=== PATIENT | female | born 1950 | race Caucasian/White ===

== ENCOUNTER 2016-11-20 19:05 | Emergency (ER) | payer OTHER ==
[~2016-11-20] VITALS: Ht 160 cm; Wt 51.4 kg
[~2016-11-20 19:05] MED LIST: ASPI-113 PO; CALCTAB7 PO; FISHOIL PO; PRED-301 PO
[2016-11-20 19:16] VITALS: TEMP 36.6; Ht 160 cm; Wt 51.4 kg
[2016-11-20] MEDS ORDERED: OXYCODONE HCL IR 5 MG TAB (IMMEDIATE RELEASE) PO STA (19:53)
[2016-11-20] MEDS ORDERED: OXYCODONE IR HOME PACK PO ONE (20:00)
[2016-11-20] MEDS ORDERED: DIPHTHERIA/TETANUS/PERTUSSIS 0.5 ML SYR/VIAL IM. ONE (20:00)
[2016-11-20] MEDS ORDERED: OXYC1TAB3 PO (20:07)
[2016-11-20] MEDS ORDERED: PRED10TA PO (20:25)
[2016-11-20] MEDS ORDERED: CHOL1000 PO (20:25)
[2016-11-20] MEDS ORDERED: OMEG10007 PO (20:25)
[2016-11-20] MEDS ORDERED: CALCTAB5 PO (20:25)
[2016-11-20 20:38] VITALS: BP 156/95; PULSE 77; O2SAT 96
--- NOTE | 2016-11-20 23:38 | EMERGENCY ROOM VISIT NOTE ---
ED Visit Note First contact with patient: 19:43 I have personally seen and evaluated the patient with the PA. I agree with the diagnosis and management decisions and have been personally involved in the case. Please see Douglas Salvador PA-C's notes for further details of the history, physical and visit.
--- NOTE | 2016-11-21 01:01 | EMERGENCY ROOM VISIT NOTE ---
History First contact with patient: 19:43 Chief Complaint: BURN (MINOR) Stated Complaint: BURN ON LEFT PALM History of Present Illness The patient is a 66 year old female who presents to the Emergency Room with complaints of a burn to her left palm while reaching into her oven and grabbing a hot dunn. The patient reports that the oven was set at 450F, and she did not think when she grabbed for the handle and burned her hand. The patient rates her discomfort a 10 out of 10. She reports that the only thing that helps with her pain is an ice pack. Tetanus immunization is unknown. The patient is right -hand-dominant. Review of Systems 10 system review was performed and was negative except for pertinent positives and negatives as indicated in history of present illness Past Medical/Surgical History Medical Problems: (1) Carpal Tunnel Syndrome (2) Rheumatoid Arthritis (3) Senile Nuclear Cataract (4) Tobacco Use Disorder Family History Unremarkable Social History Smoking Status: Current Every Day Smoker Alcohol Use: none Marital Status: Occupation Status: unemployed Current/Historical Medications Scheduled Calcium Carbonate (Caltrate 600), 1 TAB PO DAILY Cholecalciferol (Vitamin D3), 1 TAB PO DAILY Fish Oil (Potrero-3), 2 CAP PO DAILY Prednisone (Prednisone), 10 MG PO DAILY Scheduled PRN Oxycodone Ir (Roxicodone Ir), 1-2 TAB PO Q4H PRN for Pain Allergies Coded Allergies: No Known Allergies (Unverified , 09/02/12) Physical Exam Vital Signs Date Time Temp Pulse Resp B/P (MAP) Pulse Ox O2 Delivery O2 Flow Rate FiO2 11/20/16 20:38 77 22 156/95 96 11/20/16 19:16 96 Room Air 11/20/16 19:16 36.6 87 18 211/120 96 Room Air Pain Rating (0-10): 9.0 Physical Exam CONSTITUTIONAL: Healthy and well nourished. Alert and oriented X 3 with positive affect. Patient appears in moderate discomfort from pain. HEENT: Normocephalic, atraumatic. Pupils equal, round and reactive. NECK: Full active range of motion without discomfort. MUSCULOSKELETAL: Examination of the left hand hypothenar eminence shows a second -degree burn with tense but intact blister, measuring approximately 8 cm in diameter. There is no other anguiano to the fingers or wrist region. Body surface area is less than 1%. INTEGUMENTARY: No rash or other significant dermatologic conditions noted. NEUROLOGIC: No focal neurologic deficits noted. Medical Decision & Procedures Medications Administered Medications (Trade) Dose Ordered Sig/Don Route Start Time Stop Time Status Last Admin Dose Admin Oxycodone HCl (Roxicodone Immediate Rel Tab) 5 mg NOW STAT PO 11/20/16 19:53 11/20/16 19:55 DC 11/20/16 20:13 5 MG Oxycodone HCl (Roxicodone Immediate Rel 5MG Home Pack) 1 homepack UD ONCE PO 11/20/16 20:00 11/20/16 20:01 DC 11/20/16 20:14 1 HOMEPACK Diphtheria/ Pertussis/Tetanus Vacc (Adacel Inj) 0.5 ml ONCE ONCE IM. 11/20/16 20:00 11/20/16 20:01 DC 11/20/16 20:14 0.5 ML ED Course Patient history and physical exam were performed. Nurse's notes were reviewed. Vital signs were reviewed, showing a blood pressure of 211/120. The patient was administered Adacel IM, and OxyIR 5 mg for pain. A bacitracin dressing was applied to the hand. The patient was instructed to follow-up with her PCP or Dr. Snow for further burn follow-up. She is welcome to return here in 48 hours if she is unable to secure an appointment. She was provided a home pack and prescription for OxyIR 5 mg as needed for pain. The patient was also seen and examined by Dr. Cotto, ED attending physician, who agrees with workup and plan of care. The patient had already departed the emergency department before I could ask the nurse to repeat her blood pressure, which was likely secondary to pain. Medical Decision [place] Drug Monitoring Program Search Results: patient reviewed within database, no issues identified Impression Primary Impression: Burn of hand, right, second degree Departure Information Dispostion Home / Self-Care Condition GOOD Prescriptions Oxycodone Ir (Roxicodone Ir) 5 Mg Tab 1-2 TAB PO Q4H Y for Pain, #36 TAB For Initial Treatment Prov: Douglas Salvador PA 11/20/16 Referrals Sruthi Snow MD Forms HOME CARE DOCUMENTATION FORM, IMPORTANT VISIT INFORMATION Patient Instructions My [facility] Additional Instructions Intermittently apply an ice pack over gauze - do not apply ice pack directly to the skin. Keep burn clean and covered with an antibiotic ointment and dressing. Do not pop blister. Ibuprofen 800 mg and/or Tylenol 1000 mg every 8 hours. You may also alternate these medications for more effective pain relief: Ibuprofen --4 HRS--> Tylenol --4 HRS--> ibuprofen --4 HRS--> Tylenol .... OxyIR if needed for worse pain. Do not drink alcohol or drive while taking OxyIR. Problem Qualifiers Primary Impression: Burn of hand, right, second degree Encounter type: initial encounter Burn of hand location: palm Qualified Codes: T23.251A - Burn of second degree of right palm, initial encounter
--- NOTE | 2016-11-25 13:39 | EDITING REQUIRED CODING QUERY ---
CODING QUERY To promote full compliance with coding requirements relating to patient care, provider participation is requested in all cases of surgical coder uncertainty. Please assist us with the question(s) below: Coding Question(s): HPI and Physical Exam both list location of burn as the LEFT palm. Final Impression lists the location of the burn as the RIGHT hand. Please verify if this is the LEFT or RIGHT palm. Physician's Response(s): Diagnosis should be Burn of hand, LEFT, Second Degree Addendum was made to H&P on 11/27/16 Thank you Lashay Wallis Principal Diagnosis: "_that condition established after study, to be chiefly responsible for occasioning the admission of the patient to the hospital for care." Co-Existing Principal Diagnosis: "_when two or more diagnoses equally meet the criteria for principal diagnosis as determined by the circumstances of admission, diagnostic work up, and/or therapy provided, and the Alphabetic Index, Tabular List, or another coding guideline does not provide sequencing direction, any one of the diagnoses may be sequenced first." "When the physician has documented what appears to be a current diagnosis in the body of the record, but has not included the diagnosis in the final diagnostic statement, the physician should be asked whether the diagnosis should be added." (Source Coding Clinic 2 QTR90. p3-4)
== END 2016-11-20 20:39 | disposition home or self-care (01) ==
LOC: C.EDB 19:06 → C.EDD 20:39
DX: T23.252A Burn of second degree of left palm, initial encounter (principal); X15.3XXA Contact with hot saucepan or skillet, initial encounter; G56.00 Carpal tunnel syndrome, unspecified upper limb; M06.9 Rheumatoid arthritis, unspecified; H25.10 Age-related nuclear cataract, unspecified eye; F17.200 Nicotine dependence, unspecified, uncomplicated; Z23 Encounter for immunization

== ENCOUNTER → 2017-02-17 | Day surgery (SDC) | payer OTHER ==
[2017-02-07 10:02] VITALS: Ht 162.6 cm; Wt 50.0 kg
[~2017-02-17] VITALS: Ht 162.6 cm; Wt 50.0 kg
[~2017-02-17] MED LIST changes: +500ML BSS 0.3ML EPI 1:1000PF IRRIG ONE; +ACETAMINOPHEN 325 MG TAB PO PRN; +AMVISC PLUS 0.8ML SYRINGE INT OCU ONE; -ASPI-113 PO; +B-CO-25 PO; +BSS FLUSH ONE; +CALCTAB30 PO; -CALCTAB7 PO; +CHOL1000 PO; +ENDOCOAT 0.85ML SYRINGE INT OCU ONE; +ETAN50IN2 INJ; +EpINEphrine INJ 1MG/ML AMP 1 MG/ML AMP ONE; +FENTANYL CITRATE INJ 50 MCG/1 ML 2 ML VIAL ONE; -FISHOIL PO; +LABETALOL HCL IV 5 MG/ML 20ML IV ONE; +LACTATED RINGER'S 1000ML 500 ML IV SCH; +LIDOCAINE 4% OP SOLN DROP CHARGE ONE; +LIDOCAINE 4% OP SOLN DROP CHARGE OPL SCH; +LIDOCAINE HCL 1% MPF 2 ML VIAL ONE; +MIDAZOLAM HCL 1 MG/ML 2ML VIAL ONE; +MOXIFLOXACIN OPH SOLN PER DROP CHARGE ONE; +OMEG10007 PO; +POTA99TA PO; +POVIDONE-IODINE OP SOLN 30 ML BTL ONE; +PROPARACAINE 0.5% OP SOLN PER DROP CHARGE OPL SCH; +TOBRAMYCIN/DEXAMETHASONE OPH OINT PER APPLN CHARGE ONE
[2017-02-17] MEDS: PHENYLEPHRINE HCL 2.5% OP SOLN PER DROP CHARGE OPL SCH ×2 (09:52→09:58)
[2017-02-17] MEDS: TROPICAMIDE 1% OP SOLN PER DROP CHARGE OPL SCH ×2 (09:53→09:59)
[2017-02-17] MEDS: CYCLOPENTOLATE HCL 1% OP SOLN PER DROP CHARGE OPL SCH ×2 (09:54→10:00)
[2017-02-17] MEDS: KETOROLAC 0.5% OP SOLN PER DROP CHARGE OPL SCH ×2 (09:55→10:01)
[2017-02-17] MEDS: MOXIFLOXACIN OPH SOLN PER DROP CHARGE OPL SCH ×2 (09:56→10:06)
--- NOTE | 2017-02-17 10:24 | History & Physical Bridge - SC ---
H&P Re-Evaluation Bridge Note: I have examined the patient, reviewed the History & Physical and in the interval since the performance of the History & Physical I have noted the following changes of clinical significance: No changes noted
[2017-02-17] MEDS: BRIMONIDINE TART 0.2% OP SOLN PER DROP CHARGE ONE ×2 (10:38→11:01)
--- NOTE | 2017-02-17 11:04 | Discharge Instructions-SurgCtr ---
Discharge Instructions Date of Service Feb 17, 2017. Visit Reason for Visit: Left Eye Cataract, Glaucoma Discharge Discharge Diagnosis / Problem: cataract and glaucoma left eye Discharge Goals Goal(s): Improve function Activity Recommendations Activity Limitations: per Instructions/Follow-up section Lifting Limitations: no more than 5 pounds Anesthesia . Post Anesthesia Instructions: If you have had General Anesthesia or IV Sedation: * Do not drive today. * Resume driving when surgeon permits. * Do not make important decisions or sign legal documents today. * Call surgeon for: 1. Temperature elevations greater than 101 degrees F. 2. Uncontrollable pain. 3. Excessive bleeding. 4. Persistent nausea and vomiting. 5. Medication intolerance (nausea, vomiting or rash). * For nausea and vomiting use only clear liquids such as: tea, soda, bouillon until nausea subsides, then gradually increase diet as tolerated. * If you have any concerns or questions, call your surgeon's office. If physician is unavailable and it is an emergency, call 911 or go to the nearest emergency room. . Instructions / Follow-Up Instructions / Follow-Up ACTIVITY RECOMMENDATIONS: * Light activities * You may walk outside, read, watch television. * Mild irritation and blurred vision are common for the first few days, redness around the white part of the eye is common. MEDICATIONS: Resume previous medications unless instructed otherwise by your surgeon. Eye drops (today and tomorrow): Cipro - one drop in operative eye every 2 hours while awake Prednisolone 1% - one drop in operative eye every 2 hours while awake Ilevro - one drop in operative eye 1 x a day Timolol - one drop in both eyes once daily latanoprost - one drop both eyes at night SPECIAL CARE INSTRUCTIONS: * If any problems or concerns, please call Dr. Felming's office at . * Keep plastic shield taped over eye to sleep at night. * Keep plastic shield taped over eye except to administer eye drops. * Keep plastic shield on until office visit the following day. FOLLOW UP VISIT: Follow-up with Dr. Fleming in the [place] office as scheduled. If not already scheduled, please call the office at . Diet Recommendations Home Diet: resume previous diet Procedures Procedures Performed: Left Cataract Phacoemulsification With Intraocular Lens Implant Pending Studies Studies pending at discharge: no Medical Emergencies . Who to Call and When: Medical Emergencies: If at any time you feel your situation is an emergency, please call 911 immediately. . Non-Emergent Contact Non-Emergency issues call your: Boatbuilder Supervisor . . "Provider Documentation" section prepared by Timi Fleming. .
--- NOTE | 2017-02-17 11:08 | [facility] Operative Report ---
Operative Report Operative Date Feb 17, 2017. Pre-Operative Diagnosis Cataract left eye Post-Operative Diagnosis Same Procedure(s) Performed Left Cataract Phacoemulsification With Intraocular Lens Implant and attempted Cypass placement left eye Surgeon Resource Development Manager Surgeon(s) None Estimated Blood Loss Zero Findings cataract left eye Fluids (cc crystalloids) see anesthesia record Specimens None Drains none Anesthesia local with sedation Complication(s) None Disposition Recovery Room / PACU Implants [id number] 21.0 Indications decreased vision left eye and glaucoma left eye Description of Procedure After informed consent was obtained in the holding area the patient was wheeled back to the operating room where cardiac monitoring leads and oxygen by nasal cannula was administered by Anesthesia. Gentle IV sedation was given, and the patient's left eye was prepped and draped in usual sterile fashion. A wire lid speculum was placed into the left eye and the operating microscope was swung into position. Using 0.12 forceps and a Supersharp blade a paracentesis port was made 2 o'clock hours away from the 3 o'clock position of the patient's left eye. 1% non-preserved Lidocaine was then injected into the anterior chamber for anesthesia. A 2.0 mm keratotome blade was then used to make a shelved clear corneal incision at the 3 o'clock position of the left eye. Amvisc was injected into the anterior chamber and a cystotome and Utrata forceps were used to perform a curvilinear capsulorrhexis. BSS on a hydrodissection cannula was used to hydrodissect the lens nucleus away from the capsular bag. The phacoemulsification handpiece was then used in a stop and chop fashion to remove the lens nucleus. The irrigation and aspiration handpiece was then used to remove the residual cortical material. Amvisc was injected into the capsular bag and anterior chamber and a [employer]ch [employer] Lomb MX60 21.0 Diopter intraocular lens was injected into the capsular bag. The head was then rotated away from mn and the scope was rotated towards mn. Viscoelastic and gonioprism were placed on the cornea and a Cypass shunt was attempted to be placed at the 8 o'clock position of the left eye x 2. The cypass device did not pass with the patients angle anatomy. Irrigation and aspiration handpiece was used to remove the residual viscoelastic material. The wounds were hydrated and noted to be watertight. The wire lid speculum was removed from the eye. Vigamox, Brimonidine, and TobraDex ointment were placed on the eye and it was shielded. It should be noted that EndoCoat was used extensively during the case to protect the cornea endothelium. DISPOSITION: The patient tolerated the procedure well and was wheeled to the post anesthesia care unit in stable condition. I attest to the content of the Intraoperative Record and any orders documented therein. Any exceptions are noted below. I attest to the content of the Intraoperative Record and any orders documented therein. Any exceptions are noted below.
[2017-02-17 11:35] VITALS: BP 162/78; PULSE 67; TEMP 36.4; O2SAT 94
--- NOTE | 2017-02-17 11:37 | Anesthesia Progress Nt - [facility] ---
Anesthesia Post Op Note Date & Time Feb 17, 2017 at 11:37 Vital Signs Pain Intensity: 0 Vital Signs Past 12 Hours Date Time Temp Pulse Resp B/P (MAP) Pulse Ox O2 Delivery O2 Flow Rate FiO2 02/17/17 11:06 36.2 68 16 172/90 (117) 98 Room Air 02/17/17 09:30 36.8 66 22 205/115 (145) 96 Room Air 209/126 (153) Notes Mental Status: alert / awake / arousable, participated in evaluation Pt Amnestic to Procedure: Yes Nausea / Vomiting: adequately controlled Pain: adequately controlled Airway Patency, RR, SpO2: stable & adequate BP & HR: stable & adequate Hydration State: stable & adequate Anesthetic Complications: no major complications apparent
== END | disposition home or self-care (01) ==
LOC: X.SURG 09:22
PROVIDERS: ATTEND Ophthalmology
DX: H25.12 Age-related nuclear cataract, left eye (principal); H40.1190 Primary open-angle glaucoma, unspecified eye, stage unspecified; F17.210 Nicotine dependence, cigarettes, uncomplicated; Z79.899 Other long term (current) drug therapy

== ENCOUNTER 2017-05-03 10:59 | Emergency (ER) | payer OTHER ==
[~2017-05-03] VITALS: Ht 160 cm; Wt 51.4 kg
[~2017-05-03 10:59] MED LIST changes: -500ML BSS 0.3ML EPI 1:1000PF IRRIG ONE; -ACETAMINOPHEN 325 MG TAB PO PRN; -AMVISC PLUS 0.8ML SYRINGE INT OCU ONE; -BSS FLUSH ONE; -ENDOCOAT 0.85ML SYRINGE INT OCU ONE; -EpINEphrine INJ 1MG/ML AMP 1 MG/ML AMP ONE; -FENTANYL CITRATE INJ 50 MCG/1 ML 2 ML VIAL ONE; -LABETALOL HCL IV 5 MG/ML 20ML IV ONE; -LACTATED RINGER'S 1000ML 500 ML IV SCH; -LIDOCAINE 4% OP SOLN DROP CHARGE ONE; -LIDOCAINE 4% OP SOLN DROP CHARGE OPL SCH; -LIDOCAINE HCL 1% MPF 2 ML VIAL ONE; -MIDAZOLAM HCL 1 MG/ML 2ML VIAL ONE; -MOXIFLOXACIN OPH SOLN PER DROP CHARGE ONE; -POVIDONE-IODINE OP SOLN 30 ML BTL ONE; -PROPARACAINE 0.5% OP SOLN PER DROP CHARGE OPL SCH; -TOBRAMYCIN/DEXAMETHASONE OPH OINT PER APPLN CHARGE ONE
[2017-05-03 11:11] VITALS: Ht 160 cm; Wt 51.4 kg
[2017-05-03] MEDS ORDERED: HYDROCODONE/ACETAMIN 5/325MG TAB PO STA (11:32)
[2017-05-03] MEDS ORDERED: DIAZEPAM 5MG TAB PO STA (11:32)
--- NOTE | 2017-05-03 11:34 | EMERGENCY ROOM VISIT NOTE ---
History Report prepared by Patria: Grisel Manzanares Under the Supervision of: Dr. Christie Cotto M.D. First contact with patient: 11:14 Chief Complaint: BACK PAIN Stated Complaint: LOW BACK PAIN/SPASMS History of Present Illness The patient is a 66 year old female who presents to the Emergency Room with complaints of worsening back pain for the past several weeks. She rates her pain as a 7/10 in severity. Aleve has provided minimal pain relief. She states the pain radiates down into her right leg. Moving her legs worsens her pain. She has not lost control of her bowels or bladder. She has never had spinal injections or surgery before. She reports she does play with her grandson's, so she may have exacerbated something playing with them, but denies any known injury. She denies any recent chest pain or shortness of breath. The patient denies having a PCP currently but states she follows with her International Specialist, Dr. Lorenzo with [facility], regularly. Source of History: patient Onset: past several weeks Position: back Symptom Intensity: 7/10 Timing: worsening Modifying Factors (Worsening): movement (moving her legs) Modifying Factors (Relieving): other (Aleve) Associated Symptoms: No chest pain, No SOB Review of Systems See HPI for pertinent positives & negatives. A total of 10 systems reviewed and were otherwise negative. Past Medical & Surgical Medical Problems: (1) Carpal Tunnel Syndrome (2) Rheumatoid Arthritis (3) Senile Nuclear Cataract (4) Tobacco Use Disorder Social History Smoking Status: Current Every Day Smoker Alcohol Use: none Drug Use: none Marital Status: Housing Status: lives with family Occupation Status: unemployed Current/Historical Medications Scheduled B-Complex W/ Folic Acid (Super B Complex Maxi), 1 TAB PO QAM Rvbtadh-Hspflonib-Udiw (Calcium/Magnesium/Zinc), 1 TAB PO QAM Cholecalciferol (Vitamin D3), 1 TAB PO QAM Etanercept (Enbrel), 1 DOSE INJ WK Fish Oil (Leipsic-3), 1 CAP PO QAM Potassium (Potassium), 1 TAB PO QAM Prednisone (Prednisone), 40 MG PO DAILY Scheduled PRN Cyclobenzaprine Hcl (Flexeril), 5 MG PO TID PRN for Muscle Spasms Hydrocodone/Acetaminophen 5MG/325MG ([place] 5MG/325MG), 0.5-1 TABLET PO Q6 PRN for Pain Prednisone (Prednisone), 5 MG PO DIRECTED PRN for ARTHRITIC FLARE-UP Allergies Coded Allergies: No Known Allergies (Unverified , 05/03/17) Physical Exam Vital Signs Date Time Temp Pulse Resp B/P (MAP) Pulse Ox O2 Delivery O2 Flow Rate FiO2 05/03/17 13:14 36.8 77 18 161/99 98 05/03/17 13:12 77 18 161/99 98 Room Air 05/03/17 11:56 187/100 05/03/17 11:32 78 18 206/105 98 Room Air 05/03/17 11:11 36.8 75 16 223/113 98 Room Air 212/102 Physical Exam Vital signs reviewed. General: Well-appearing 66 year old female, sitting up in bed, holding right lower back, in no significant distress. HEENT: No scleral icterus, PERRLA, neck supple. Atraumatic. Cardiovascular: Regular rate and rhythm, no extra sounds. Pulmonary: Clear to auscultation bilaterally, normal work of breathing. Abdomen: Soft, nontender, nondistended, positive bowel sounds. Musculoskeletal: Mildly tender to palpation over right paraspinous muscle. Lumbar spine is nontender, no step off, no deformity. Full strength of lower extremities. Negative straight leg raise. Atraumatic, no peripheral edema. Neurologic: Patient awake alert and oriented x 3, full strength in all 4 extremities. Cranial nerves 2 through 12 grossly intact. Skin: Warm, dry, no rash Medical Decision & Procedures ER Provider Diagnostic Interpretation: Radiology results as stated below per my review and radiologist interpretation: L-SPINE MIN 4 VIEWS ROUTINE CLINICAL HISTORY: 66 years-old Female presenting with Lumbar radiculopathy, Right. TECHNIQUE: Frontal, bilateral oblique, lateral, and coned in lateral views of the lumbar spine were obtained. COMPARISON: None. FINDINGS: Levocurvature of the lumbar spine centered at L3. 12 mm of grade 2 anterolisthesis of L4 on L5 without radiographic evidence of a pars defect though this may be present at L4. Vertebral bodies maintain normal height. Intervertebral disc height loss at L4-5. Osseous neural foraminal narrowing results at L4-5. Lung bases clear. No bowel obstruction. IMPRESSION: Significant anterolisthesis of L4 on L5 with osseous neural foraminal narrowing. Electronically signed by: Dinesh Ivy M.D. 05/03/2017 12:32 PM Medications Administered Medications (Trade) Dose Ordered Sig/Don Route Start Time Stop Time Status Last Admin Dose Admin Diazepam (Valium Tab) 5 mg NOW STAT PO 05/03/17 11:32 05/03/17 11:35 DC 05/03/17 11:42 5 MG Prednisone (PredniSONE TAB) 40 mg NOW STAT PO 05/03/17 11:32 05/03/17 11:35 DC 05/03/17 11:43 40 MG Acetaminophen/ Hydrocodone Bitart ([place] 5/325 Tab) 1 tab NOW STAT PO 05/03/17 11:32 05/03/17 11:35 DC 05/03/17 11:42 1 TAB ED Course 1128: Past medical records reviewed. The patient was evaluated in room A11. A complete history and physical examination was performed. 1132: [place] 5/325 mg 1 tab PO, Prednisone 40 mg PO, Valium 5 mg PO. 1250: I reevaluated the patient. She is feeling much better. I discussed her results and discharge instructions and she verbalized complete understanding and agreement. Medical Decision DDx: Etiologies such as musculoskeletal, disc herniation, fracture, aortic disease, metastatic disease, cord compression, discitis, infection, renal colic, gastrointestinal, acute exacerbation of chronic back pain, sciatica, cauda equina, as well as others were entertained. This pt was evaluated and appeared to be in no distress. Pt was given Valium 5 mg PO, prednisone 40 mg po and norco 1 tab po. L spine XR reveals significant anterolisthesis of L4 on L5 with osseous neural foraminal narrowing. The patient likely exacerbated this issue while picking up/playing with grandkids. There is no appreciable neuro deficit on exam, no loss bowel or bladder. Pt had improvement with meds. She was d/c with Rx for prednisone, flexeril and norco. Pt was encouraged to f/u with a PCP (she has not seen one in many years ) regarding her blood pressure, back pain. She was encouraged to stop smoking. Pt will return to the ED for worsening of symptoms or any medical concerns. Medication Reconcilliation Current Medication List: was personally reviewed by me Blood Pressure Screening Patient's blood pressure: Elevated blood pressure Blood pressure disposition: Referred to PCP Impression Primary Impression: Lumbar radiculopathy Additional Impression: Hypertension Scribe Attestation The scribe's documentation has been prepared under my direction and personally reviewed by me in its entirety. I confirm that the note above accurately reflects all work, treatment, procedures, and medical decision making performed by me. Departure Information Dispostion Home / Self-Care Prescriptions Hydrocodone/Acetaminophen 5MG/325MG ([place] 5MG/325MG) Tab 0.5-1 TABLET PO Q6 Y for Pain, #14 TAB Prov: Christie Cotto M.D. 05/03/17 Cyclobenzaprine Hcl (FLEXERIL) 5 Mg Tab 5 MG PO TID Y for Muscle Spasms, #20 TAB Prov: Christie Cotto M.D. 05/03/17 Prednisone (Prednisone) 20 Mg Tab 40 MG PO DAILY, #8 TAB Prov: Christie Cotto M.D. 05/03/17 Referrals No Doctor, Assigned (PCP) Patient Instructions My [facility] Additional Instructions Diagnosis: Lumbar radiculopathy, hypertension Please contact [facility] medical group for an appointment with a primary care physician as soon as possible. Call the number listed under Dr. Caicedo, or [phone]. Flexeril 5 mg 3 times a day as needed for muscular spasm. Prednisone 40 mg a day for the next 4 days. [place] one half to one tab every 4-6 hours as needed for significant pain. Do not drive or take Tylenol with this medication. Warm compresses and gentle stretching for relief of your discomfort. Please stop smoking. Have her blood pressure rechecked as soon as possible. Return to the ER for worsening of symptoms or any medical concerns. Problem Qualifiers
--- NOTE | 2017-05-03 12:33 | DIAGNOSTIC IMAGING REPORT ---
L-SPINE MIN 4 VIEWS ROUTINE CLINICAL HISTORY: 66 years-old Female presenting with Lumbar radiculopathy, Right. TECHNIQUE: Frontal, bilateral oblique, lateral, and coned in lateral views of the lumbar spine were obtained. COMPARISON: None. FINDINGS: Levocurvature of the lumbar spine centered at L3. 12 mm of grade 2 anterolisthesis of L4 on L5 without radiographic evidence of a pars defect though this may be present at L4. Vertebral bodies maintain normal height. Intervertebral disc height loss at L4-5. Osseous neural foraminal narrowing results at L4-5. Lung bases clear. No bowel obstruction. IMPRESSION: Significant anterolisthesis of L4 on L5 with osseous neural foraminal narrowing. Electronically signed by: Dinesh Ivy M.D. 05/03/2017 12:32 PM Dictated Date/Time: 05/03/2017 12:30 PM
[2017-05-03] MEDS ORDERED: HYDR-5688 PO (12:58)
[2017-05-03] MEDS ORDERED: PRED20TA PO (12:58)
[2017-05-03] MEDS ORDERED: CYCL5TAB PO (12:58)
[2017-05-03 13:14] VITALS: BP 161/99; PULSE 77; TEMP 36.8; O2SAT 98
== END 2017-05-03 13:14 | disposition home or self-care (01) ==
LOC: C.EDB 11:01 → C.EDA 13:14
DX: M54.16 Radiculopathy, lumbar region (principal); I10 Essential (primary) hypertension; M43.16 Spondylolisthesis, lumbar region; F17.200 Nicotine dependence, unspecified, uncomplicated; M06.9 Rheumatoid arthritis, unspecified

== ENCOUNTER 2017-06-14 18:46 | Inpatient (IN) | payer OTHER ==
[~2017-06-14] VITALS: Ht 160 cm; Wt 52.0 kg
[~2017-06-14 18:46] MED LIST changes: +HYDR-5688 PO; +PRED20TA PO
[2017-06-14] MEDS ORDERED: SODIUM CHLORIDE 0.9% 1000ML 1,000 ML IV STA ×3 (19:10→22:32)
[2017-06-14] MEDS ORDERED: ONDANSETRON INJ 2 MG/ML 2 ML VIAL IV STA (19:10)
[2017-06-14 19:39] LABS: BASO % 0.1 %; BASO ABS # 0.01 K/uL (0-0.2); HEMATOCRIT 39.2 % (37-47); HEMOGLOBIN 14.1 g/dL (12.0-16.0); IG# 0.04 K/uL (0.00-0.02); LYMPH % 9.1 %; LYMPH ABS # 1.32 K/uL (1.2-3.4); MEAN CELL VOLUME 94.5 fL (80-100); MEAN PLATELET VOLUME 8.2 fL (7.4-10.4); MONO % 10.7 %; MONO ABS # 1.55 K/uL (0.11-0.59); NEUT % 79.8 %; PLATELET COUNT 257 K/uL (130-400); RED CELL DISTRIBUTION WIDTH CV 12.8 % (11.5-14.5); RED CELL DISTRIBUTION WIDTH SD 43.6 fL (36.4-46.3); WHITE BLOOD COUNT 14.52 K/uL (4.8-10.8)
[2017-06-14] MEDS ORDERED: LOSA100T65 PO (19:47)
[2017-06-14] MEDS ORDERED: AMLO-110 PO (19:47)
[2017-06-14] MEDS ORDERED: HYDR12.56 PO (19:47)
[2017-06-14 19:56] LABS: ALBUMIN 3.6 gm/dl (3.4-5.0); ALT/SGPT 20 U/L (12-78); AST/SGOT 12 U/L (15-37); BLOOD UREA NITROGEN 8 mg/dl (7-18); CARBON DIOXIDE 26 mmol/L (21-32); CREATININE 0.68 mg/dl (0.60-1.20); GLUCOSE 126 mg/dl (70-99); LIPASE 94 U/L (73-393); POTASSIUM 3.2 mmol/L (3.5-5.1); SODIUM 129 mmol/L (136-145)
[2017-06-14 20:10] LABS: ALKALINE PHOSPHATASE 62 U/L (45-117); TOTAL PROTEIN 7.3 gm/dl (6.4-8.2)
[2017-06-14 20:17] LABS: INFLUENZA B ANTIGEN Neg for Influ B (NEG)
--- NOTE | 2017-06-14 22:05 | DIAGNOSTIC IMAGING REPORT ---
CHEST AND ABDOMEN 2 VIEWS HISTORY: Nausea. Vomiting. Generalized abdominal pain. COMPARISON: Chest 01/20/2012. FINDINGS: The lungs are hyperexpanded with apical predominant emphysematous changes. No focal lung consolidations. The heart is normal in size. No pleural effusions. No pneumothorax. There are 3 orthopedic screws within the right hip. No renal or ureteral calculi. No pneumatosis. Moderate well-formed stool within the colon. A few nondistended gas-filled loops of large and small bowel seen throughout the abdomen. No evidence for bowel obstruction. IMPRESSION: No acute cardiopulmonary process. No evidence for bowel obstruction. Emphysema. Moderate well-formed stool within the colon. Electronically signed by: Jos Antonio M.D. 06/14/2017 10:04 PM Dictated Date/Time: 06/14/2017 9:57 PM
[2017-06-14] MEDS ORDERED: OPTIRAY 320 IV PRN (22:45)
[2017-06-14] MEDS ORDERED: DICYCLOMINE HCL 10 MG CAP PO ONE (22:45)
--- NOTE | 2017-06-14 23:34 | DIAGNOSTIC IMAGING REPORT ---
ABDOMEN AND PELVIS CT WITH IV CONTRAST CT DOSE: 282.23 mGy.cm HISTORY: MS abdominal pain. Fever. Nausea. TECHNIQUE: Multiaxial CT images of the abdomen and pelvis were performed following the use of intravenous contrast. A dose lowering technique was utilized adhering to the principles of ALARA. COMPARISON STUDY: None. FINDINGS: The lung bases are essentially clear. No pneumoperitoneum. No pneumatosis. 3 orthopedic screws identified within the right hip. The liver, gallbladder, pancreas, spleen, adrenal glands are unremarkable. No hydronephrosis. 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 No retroperitoneal lymphadenopathy. The bladder is mildly distended. The uterus and bilateral ovaries are within normal limits. No retroperitoneal lymphadenopathy. No evidence for bowel obstruction. Extensive edema and inflammatory change within the right lower quadrant surrounding the distended and thick walled appendix. The appendix measures up to 11 mm in diameter. This is consistent with acute appendicitis. There are 2 appendicoliths within the appendix measuring up to 6 mm. No perforation or abscess identified at this time. IMPRESSION: Acute appendicitis. Electronically signed by: Jos Antonio M.D. 06/14/2017 11:33 PM Dictated Date/Time: 06/14/2017 11:27 PM
--- NOTE | 2017-06-14 23:53 | EMERGENCY ROOM VISIT NOTE ---
History Report prepared by Patria: Tori Del Real Under the Supervision of: Dr. Kate Alvarez D.O. First contact with patient: 19:00 Chief Complaint: FLU LIKE SX Stated Complaint: BODY ACHES, FEVER, NAUSEA, UPSET STOMACH History of Present Illness The patient is a 66 year old female who presents to the Emergency Room with complaints of persistent nausea starting early this morning. The patient woke up in the middle of the night feeling nauseous. Her abdomen has a rolling sensation like she is about to have diarrhea, but no pain. She has not yet had any diarrhea. She is thirsty, but unable to drink because of her nausea. She has also been unable to eat. She has been dry heaving, but has not vomited. She was in [place] yesterday with her . Upon returning home they had a hamburger. Her has not had similar symptoms. She reports chills and stuffy nose. She had some sore throat which has resolved. She feels lightheaded which she attributes to not eating or drinking. She denies any cough, SOB, chest pain, rash, or swelling. She has not taken her temperature. She did not get a flu shot. She denies any recent medication changes. She denies any history of abdominal problems. She has a history of spinal stenosis and hypertension. She denies any other medical problems. Source of History: patient Onset: early this morning Position: abdomen Quality: other (nausea) Timing: other (persistent) Associated Symptoms: + chills, + sorethroat (resolved), No cough, No chest pain, No SOB, No abdominal pain, No diarrhea, No rash Note: Pt reports lightheadedness, stuffy nose. Review of Systems See HPI for pertinent positives & negatives. A total of 10 systems reviewed and were otherwise negative. Past Medical & Surgical Medical Problems: (1) Acute perforated appendicitis (2) Carpal Tunnel Syndrome (3) Rheumatoid Arthritis (4) Senile Nuclear Cataract (5) Tobacco Use Disorder Family History Diabetes mellitus Social History Smoking Status: Former Smoker Alcohol Use: none Drug Use: none Marital Status: Housing Status: lives with family Occupation Status: unemployed Current/Historical Medications Scheduled Amlodipine (Norvasc), 5 MG PO DAILY Hydrochlorothiazide (Hctz), 12.5 MG PO DAILY Losartan Potassium (Cozaar), 100 MG PO DAILY Allergies Coded Allergies: No Known Allergies (Unverified , 05/03/17) Physical Exam Vital Signs Date Time Temp Pulse Resp B/P (MAP) Pulse Ox O2 Delivery O2 Flow Rate FiO2 06/15/17 03:37 37.6 92 26 169/89 100 Oxymask 10 06/15/17 01:36 93 16 168/79 97 06/15/17 00:46 105 16 165/83 92 Room Air 06/15/17 00:12 97 20 168/90 93 Room Air 06/14/17 22:38 104 20 165/96 95 Room Air 06/14/17 22:15 36.8 06/14/17 20:45 37.4 104 20 172/91 94 Room Air 06/14/17 19:13 103 06/14/17 18:52 37.5 121 20 159/90 94 Room Air Physical Exam GENERAL: alert, well appearing, mildly ill nourished, no distress, non-toxic EYE EXAM: normal conjunctiva, PERRL and EOM's grossly intact OROPHARYNX: no exudate, no erythema, lips, buccal mucosa, and tongue normal and mucous membranes are dry NECK: supple, no nuchal rigidity, no adenopathy, non-tender LUNGS: Decreased breath sounds. No wheezes, rhonchi, rales. Normal chest wall mechanics HEART: no murmurs, S1 normal and S2 normal ABDOMEN: abdomen soft, non-tender, normo-active bowel sounds, no masses, no rebound or guarding. BACK: Back is symmetrical on inspection and there is no deformity, no midline tenderness, no CVA tenderness. SKIN: no rashes and no bruising UPPER EXTREMITIES: upper extremities are grossly normal. LOWER EXTREMITIES: No pitting edema. NEURO EXAM: Normal sensorium, cranial nerves II-XII grossly intact, normal speech, no gross weakness of arms, no gross weakness of legs. Medical Decision & Procedures ER Provider Diagnostic Interpretation: Radiology results have been interpreted by the radiologist and reviewed by me. CHEST AND ABDOMEN 2 VIEWS HISTORY: Nausea. Vomiting. Generalized abdominal pain. COMPARISON: Chest 01/20/2012. FINDINGS: The lungs are hyperexpanded with apical predominant emphysematous changes. No focal lung consolidations. The heart is normal in size. No pleural effusions. No pneumothorax. There are 3 orthopedic screws within the right hip. No renal or ureteral calculi. No pneumatosis. Moderate well-formed stool within the colon. A few nondistended gas-filled loops of large and small bowel seen throughout the abdomen. No evidence for bowel obstruction. IMPRESSION: No acute cardiopulmonary process. No evidence for bowel obstruction. Emphysema. Moderate well-formed stool within the colon. Electronically signed by: Jos Antonio M.D. 06/14/2017 10:04 PM Dictated Date/Time: 06/14/2017 9:57 PM ABDOMEN AND PELVIS CT WITH IV CONTRAST CT DOSE: 282.23 mGy.cm HISTORY: MS abdominal pain. Fever. Nausea. TECHNIQUE: Multiaxial CT images of the abdomen and pelvis were performed following the use of intravenous contrast. A dose lowering technique was utilized adhering to the principles of ALARA. COMPARISON STUDY: None. FINDINGS: The lung bases are essentially clear. No pneumoperitoneum. No pneumatosis. 3 orthopedic screws identified within the right hip. The liver, gallbladder, pancreas, spleen, adrenal glands are unremarkable. No hydronephrosis. 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 No retroperitoneal lymphadenopathy. The bladder is mildly distended. The uterus and bilateral ovaries are within normal limits. No retroperitoneal lymphadenopathy. No evidence for bowel obstruction. Extensive edema and inflammatory change within the right lower quadrant surrounding the distended and thick walled appendix. The appendix measures up to 11 mm in diameter. This is consistent with acute appendicitis. There are 2 appendicoliths within the appendix measuring up to 6 mm. No perforation or abscess identified at this time. IMPRESSION: Acute appendicitis. Electronically signed by: Jos Antonio M.D. 06/14/2017 11:33 PM Dictated Date/Time: 06/14/2017 11:27 PM Laboratory Results 06/14/17 19:30 Test 06/14/17 19:30 06/14/17 19:38 06/14/17 19:42 Prothrombin Time 10.1 SECONDS (9.0-12.0) Prothromb Time International Ratio 1.0 (0.9-1.1) Anion Gap 9.0 mmol/L (3-11) Est Creatinine Clear Calc Drug Dose 63.8 ml/min Estimated GFR () 106.4 Estimated GFR (Non- 91.8 BUN/Creatinine Ratio 11.7 (10-20) Calcium Level 10.0 mg/dl (8.5-10.1) Magnesium Level 1.7 mg/dl (1.8-2.4) Total Bilirubin 0.7 mg/dl (0.2-1) Aspartate Amino Transf (AST/SGOT) 12 U/L (15-37) Alanine Aminotransferase (ALT/SGPT) 20 U/L (12-78) Alkaline Phosphatase 62 U/L (45-117) Troponin I < 0.015 ng/ml (0-0.045) Total Protein 7.3 gm/dl (6.4-8.2) Albumin 3.6 gm/dl (3.4-5.0) Globulin 3.7 gm/dl (2.5-4.0) Albumin/Globulin Ratio 1.0 (0.9-2) Lipase 94 U/L (73-393) Thyroid Stimulating Hormone (TSH) 1.660 uIu/ml (0.300-4.500) Influenza Type A Antigen Neg for Influ A (NEG) Influenza Type B Antigen Neg for Influ B (NEG) Bedside Lactic Acid Venous 1.16 mmol/L (0.90-1.70) Urine Color YELLOW Urine Appearance TURBID (CLEAR) Urine pH 8.0 (4.5-7.5) Urine Specific [place] 1.012 (1.000-1.030) Urine Protein NEG (NEG) Urine Glucose (UA) NEG (NEG) Urine Ketones NEG (NEG) Urine Occult Blood 2+ (NEG) Urine Nitrite NEG (NEG) Urine Bilirubin NEG (NEG) Urine Urobilinogen NEG (NEG) Urine Leukocyte Esterase NEG (NEG) Urine WBC (Auto) 1-5 /hpf (0-5) Urine RBC (Auto) 10-30 /hpf (0-4) Urine Hyaline Casts (Auto) 0 /lpf (0-5) Urine Epithelial Cells (Auto) >30 /lpf (0-5) Urine Bacteria (Auto) NEG (NEG) Laboratory results per my review. Medications Administered Medications (Trade) Dose Ordered Sig/Don Route Start Time Stop Time Status Last Admin Dose Admin Sodium Chloride 1,000 ml @ 999 mls/hr Q1H1M STAT IV 06/14/17 19:10 06/14/17 20:10 DC 06/14/17 19:24 999 MLS/HR Ondansetron HCl (Zofran Inj) 4 mg NOW STAT IV 06/14/17 19:10 4/14/18 19:12 DC 06/14/17 19:40 4 MG Sodium Chloride 1,000 ml @ 999 mls/hr Q1H1M STAT IV 06/14/17 20:42 06/14/17 21:42 DC 06/14/17 20:47 999 MLS/HR Sodium Chloride 1,000 ml @ 999 mls/hr Q1H1M STAT IV 06/14/17 22:32 06/14/17 23:32 DC 06/14/17 22:52 999 MLS/HR Dicyclomine HCl (Bentyl Cap) 20 mg NOW ONCE PO 06/14/17 22:45 06/14/17 22:46 DC 06/14/17 22:38 20 MG Fentanyl Citrate (Fentanyl Inj) 50 mcg NOW STAT IV 06/15/17 00:27 06/15/17 00:29 DC 06/15/17 00:33 50 MCG Cefoxitin Sodium 2000 mg/Dextrose 60 ml @ 120 mls/hr NOW STAT IV 06/15/17 00:46 06/15/17 01:15 DC 06/15/17 01:05 120 MLS/HR Lidocaine/ Epinephrine (Xylocaine/Epine 1% Inj) 20 ml STK-MED ONCE .ROUTE 06/15/17 01:19 06/15/17 01:20 DC 06/15/17 01:19 5 ML Fentanyl Citrate (Fentanyl Inj) 25 mcg Q5M PRN IV 06/15/17 01:30 06/15/17 04:00 DC 06/15/17 04:05 25 MCG ECG Per My Interpretation Indication: nausea Rate (beats per minute): 94 Rhythm: sinus rhythm Findings: no acute ischemic change, no ectopy, other (normal axis, normal intervals, baseline artifact noted) ED Course 1903: The patient was evaluated in room C7. A complete history and physical exam was performed. 1909: Zofran Inj 4 mg IV, Sodium Chloride 1000 ml @ 999 mls/hr IV. 2041: Sodium Chloride 1000 ml @ 999 mls/hr IV. 2128: I reevaluated the patient. She is still feeling unwell. I updated her on all the results. 2229: I reevaluated the patient. She is still feeling unwell. 2231: Sodium Chloride 1000 ml @ 999 mls/hr IV. 5: Bentyl Cap 20 mg PO. 2344: Upon reevaluation, the patient is stable. I discussed the findings and the treatment plan with the patient. She expresses agreement and understanding. She will be evaluated for further management. 2347: I reviewed the patient's case with MYESHA Clinton general surgery. He will evaluate the patient for further management. Medical Decision Differential Diagnosis includes but is not limited to gastroenteritis, food borne illness, appendicitis, diverticulitis, inflammatory bowel disease, obstruction, GI bleed, biliary pathology, dehydration, stroke, anemia, hypoglycemia, hyponatremia, hypernatremia, urinary tract infection, pneumonia, bronchitis, sepsis, additional abdominal pathology, metabolic abnormalities and infections. On initial presentation patient with possible dehydration and flulike syndrome, patient ultimately found to have acute appendicitis. Patient with mild hyponatremia likely secondary to poor p.o. intake today. No acute kidney failure. Leukocytosis noted. I do not suspect bacteremia/sepsis, perforation, or worsening peritonitis. Patient seen and evaluated in the emergency room by the surgical PA. Patient made aware of all results and was agreeable with plan. Medication Reconcilliation Current Medication List: was personally reviewed by me Blood Pressure Screening Patient's blood pressure: Elevated blood pressure Blood pressure disposition: Elevated BP felt to be situational Consults Time Called: 2345 Consulting Physician: MYESHA Clinton general surgery Returned Call: [phone] I reviewed the patient's case with him. He will evaluate the patient for further management and discussed with Dr. Jean. Impression Primary Impression: Acute appendicitis Additional Impressions: Vomiting Dehydration Hyponatremia Scribe Attestation The scribe's documentation has been prepared under my direction and personally reviewed by me in its entirety. I confirm that the note above accurately reflects all work, treatment, procedures, and medical decision making performed by me. Departure Information Dispostion Being Evaluated By Surgeon Referrals Colton Vaca D.O. (PCP) Patient Instructions [facility] Problem Qualifiers Primary Impression: Acute appendicitis Acute appendicitis type: unspecified acute appendicitis type Qualified Codes : K35.80 - Unspecified acute appendicitis Additional Impressions: Vomiting Vomiting type: unspecified Vomiting Intractability: non-intractable Nausea presence: with nausea Qualified Codes: R11.2 - Nausea with vomiting, unspecified
[2017-06-15] VITALS (8 sets, daily range): BP systolic 124–173; BP diastolic 76–90; PULSE 87–108; TEMP 36.5–37.3; O2SAT 90–96; Ht 160 cm; Wt 52.0 kg
[2017-06-15] MEDS ORDERED: FENTANYL CITRATE INJ 50 MCG/1 ML 2 ML VIAL IV STA (00:27)
[2017-06-15] MEDS ORDERED: CEFOXITIN SOD 2 GM VIAL IV STA (00:41)
--- NOTE | 2017-06-15 00:43 | History & Physical Bridge Note ---
H&P Re-Evaluation Bridge Note: I have examined the patient, reviewed the History & Physical and in the interval since the performance of the History & Physical I have noted the following changes of clinical significance: No changes noted pt examined acute appendicitis tender with significant rebound plan lap appy possible open SO at bedside
[2017-06-15] MEDS ORDERED: CEFOXITIN IV 2,000 MG in DEXTROSE 5% 50ML 50 ML IV STA (00:46)
--- NOTE | 2017-06-15 00:56 | History and Physical ---
History & Physical Date Jun 15, 2017. Chief Complaint RLQ abdominal pain History of Present Illness The patient is a 66 year old female with complaints of abdominal pain which began last night. Reports associated nausea and dry heaves as well. Denies vomiting anything up. Her pain started out generalized and eventually localized in the RLQ today. Reports she has had chills since her pain began. Denies recent illness. She has been urinating and and moving her bowels without issue. Denies history of recent abdominal surgery. Denies use of blood thinning or anticoagulant medications. She last ate last night around the time her pain began. WBC 14.52. CT shows findings significant for acute appendicitis. Past Medical/Surgical History Medical Problems: (1) Carpal Tunnel Syndrome (2) Rheumatoid Arthritis (3) Senile Nuclear Cataract (4) Tobacco Use Disorder Additional History Hepatic Disease: No Endocrine Disorder: No Kidney Disease: No Hypertension: Yes Heart Disease: No Bleeding Tendencies: No Infectious Diseases: No Allergies Coded Allergies: No Known Allergies (Unverified , 05/03/17) Home Medications Scheduled Amlodipine (Norvasc), 5 MG PO DAILY Hydrochlorothiazide (Hctz), 12.5 MG PO DAILY Losartan Potassium (Cozaar), 100 MG PO DAILY Physical Examination Skin: warm/dry Head: normocephalic, atraumatic Neck: trachea midline Respiratory/Chest: lungs clear, no respiratory distress Cardiovascular: regular rate, rhythm, no murmur Abdomen / GI: + pertinent finding (RLQ TTP, rebound tenderness) Neurologic/Psych: alert, oriented x 3 Diagnosis Acute appendicitis ASA Classification: ASA Class II Plan of Treatment Will proceed with laparoscopic appendectomy, possible open with Dr. Jean in the OR tonight. Risks, benefits, alternatives to the procedure were discussed, questions answered, consent forms signed. NPO, IV Mefoxin 2g given, SCDs. OR Notified. Please contact with questions or concerns.
[2017-06-15] MEDS ORDERED: ROCURONIUM BROMIDE 10 MG/ML 5 ML VIAL IV ONE (01:11)
[2017-06-15] MEDS ORDERED: GLYCOPYRROLATE INJ 0.2 MG/ML VIAL ONE (01:11)
[2017-06-15] MEDS ORDERED: ONDANSETRON INJ 2 MG/ML 2 ML VIAL ONE (01:11)
[2017-06-15] MEDS ORDERED: FENTANYL CITRATE INJ 50 MCG/1 ML 2 ML VIAL ONE ×3 (01:11→03:46)
[2017-06-15] MEDS ORDERED: SUCCINYLCHOLINE CHLORIDE 20 MG/ML 10 ML VIAL IV ONE (01:11)
[2017-06-15] MEDS ORDERED: NEOSTIGMINE METHYLSULFATE 5 MG/5 ML SYR ONE (01:11)
[2017-06-15] MEDS ORDERED: PROPOFOL IV EMULSION 10 MG/ML 20 ML VIAL IV ONE (01:11)
[2017-06-15] MEDS ORDERED: MIDAZOLAM HCL 1 MG/ML 2ML VIAL ONE (01:11)
[2017-06-15] MEDS ORDERED: DEXAMETHASONE SOD INJ 4 MG/ML VIAL ONE (01:11)
[2017-06-15] MEDS ORDERED: LIDOCAINE/EPINEPHRINE 1% 20 ML VIAL ONE ×2 (01:19)
[2017-06-15] MEDS ORDERED: ATROPINE SULFATE 0.1 MG/ML 5ML SYR IV PRN (01:30)
[2017-06-15] MEDS ORDERED: ONDANSETRON INJ 2 MG/ML 2 ML VIAL IV PRN (01:30)
[2017-06-15] MEDS ORDERED: HYDROmorphone INJ 1 MG/ML SYR IV PRN (01:30)
[2017-06-15] MEDS ORDERED: EpHEDrine SULFATE INJ 50 MG/ML AMP IV PRN (01:30)
--- NOTE | 2017-06-15 03:25 | [facility] Post Operative Brief Note ---
Immediate Operative Summary Operative Date Jun 15, 2017. Pre-Operative Diagnosis Acute Appendicitis Post-Operative Diagnosis ruptured(gangrenous) retrocecal appendicitis Procedure(s) Performed lap converted to open appendectomy Surgeon Dr. Jean Investment Representative Surgeon(s) Jose Villafana PA-C Estimated Blood Loss 20cc Findings See Below ruptured rertocecal gangrenous appendicitis Specimens A: ruptured appendix Drains 19 elsy right gutter to cul de sac
[2017-06-15] MEDS ORDERED: ACETAMINOPHEN IV 100 ML IV PRN (03:45)
[2017-06-15] MEDS ORDERED: PIPERACILL/TAZOBAC CONSULT ACTIVE PRN (03:45)
[2017-06-15] MEDS ORDERED: OXYCODONE/ACETAMINOPHEN 5-325 TAB PO PRN (03:45)
[2017-06-15] MEDS ORDERED: MoRPHine SULFATE 10 MG/ML CARP/VIAL IV PRN (03:45)
[2017-06-15] MEDS ORDERED: MoRPHine SULFATE 4 MG/ML 1 ML CARP\\VIAL IV PRN (03:45)
[2017-06-15] MEDS: FENTANYL CITRATE INJ 50 MCG/1 ML 2 ML VIAL IV PRN ×4 (03:49→04:05)
--- NOTE | 2017-06-15 04:03 | Anesthesiology Progress Note ---
Anesthesia Post Op Note Date & Time Jun 15, 2017 at 04:03 Vital Signs Pain Intensity: 6 Vital Signs Past 12 Hours Date Time Temp Pulse Resp B/P (MAP) Pulse Ox O2 Delivery O2 Flow Rate FiO2 06/15/17 03:55 92 18 164/84 100 Oxymask 10 06/15/17 03:45 92 20 177/92 100 Oxymask 10 06/15/17 03:37 37.6 92 26 169/89 100 Oxymask 10 06/15/17 01:36 93 16 168/79 97 06/15/17 00:46 105 16 165/83 92 Room Air 06/15/17 00:12 97 20 168/90 93 Room Air 06/14/17 22:38 104 20 165/96 95 Room Air 06/14/17 22:15 36.8 06/14/17 20:45 37.4 104 20 172/91 94 Room Air 06/14/17 19:13 103 06/14/17 18:52 37.5 121 20 159/90 94 Room Air Notes Mental Status: alert / awake / arousable, participated in evaluation Pt Amnestic to Procedure: Yes Nausea / Vomiting: adequately controlled Pain: adequately controlled Airway Patency, RR, SpO2: stable & adequate BP & HR: stable & adequate Hydration State: stable & adequate Anesthetic Complications: no major complications apparent
[2017-06-15] MEDS ORDERED: ACETAMINOPHEN 1000 MG/100 ML IV IV ONE (04:15)
[2017-06-15] MEDS ORDERED: LABETALOL HCL IV 5 MG/ML 20ML IV PRN (04:15)
[2017-06-15] MEDS: LACTATED RINGER'S 1000ML 1,000 ML IV SCH ×2 (05:12→22:32)
[2017-06-15] MEDS ORDERED: PIPERACILL/TAZOBAC IV 3.375 GM in NSS 100 ML IV ONE (05:15)
[2017-06-15] MEDS ORDERED: PIPERACILL/TAZOBAC IV 3.375 GM in DEXTROSE 5% 100ML 100 ML IV SCH (06:00)
[2017-06-15] MEDS: OXYCODONE/ACETAMINOPHEN 5-325 TAB PO PRN ×3 (06:28→14:18)
[2017-06-15 07:10] LABS: BASO % 0.1 %; BASO ABS # 0.01 K/uL (0-0.2); HEMOGLOBIN 14.5 g/dL (12.0-16.0); IG# 0.07 K/uL (0.00-0.02); LYMPH % 2.8 %; LYMPH ABS # 0.54 K/uL (1.2-3.4); MEAN CELL VOLUME 95.8 fL (80-100); MEAN CORPUSCULAR HEMOGLOBIN 33.9 pg (25-34); MEAN CORPUSCULAR HGB CONC 35.4 g/dl (32-36); MEAN PLATELET VOLUME 8.3 fL (7.4-10.4); MONO % 4.8 %; MONO ABS # 0.93 K/uL (0.11-0.59); NEUT % 91.9 %; NEUT ABS # 17.88 K/uL (1.4-6.5); PLATELET COUNT 248 K/uL (130-400); RED CELL DISTRIBUTION WIDTH CV 12.8 % (11.5-14.5); RED CELL DISTRIBUTION WIDTH SD 44.3 fL (36.4-46.3); WHITE BLOOD COUNT 19.43 K/uL (4.8-10.8)
--- NOTE | 2017-06-15 09:19 | OPERATIVE REPORT ---
DATE OF OPERATION: 06/15/2017 SURGEON: Anton Jean MD PROCUREMENT OFFICER: Jose Jackson PA-C PREOPERATIVE DIAGNOSIS: Acute appendicitis. POSTOPERATIVE DIAGNOSIS: Acute ruptured gangrenous retrocecal appendix. PROCEDURE: Laparoscopy converted to open appendectomy. SUMMARY: After induction of general anesthesia, the patient's bladder was drained. The abdomen was prepped with Betadine solution and properly draped. We made a small incision supraumbilical sufficient enough to place a Veress needle followed by CO2 followed by 5 mm trocar. Point of entry inspected and no injury identified. Under direct visualization, we placed a 5 mm right upper quadrant port with preemptive local analgesia 1% Xylocaine. With these 2 ports size, I elevated the cecum. I could see that the appendix was probably taken out in the retrocecal area. At this point, I converted the 5 mm umbilical port to 11 mm before under direct visualization then placed a 5 mm left lower quadrant. I used the left lower quadrant port for the camera. We elevated the cecum, we could see the base of the appendix, it was quite inflamed, thickened and appearing retrocecal and also seems to be like necrotic areas associated what appeared to be the terminal ileum, adjacent to the appendix, but it was hard to differentiate. As we tried to elevate this tissue here the appendix is pretty much very friable and actually fell apart. At this point, I felt that I could not really safely complete the procedure laparoscopically given to the extent that I was not able to see what the endpoint was the appendix as far as the cecal area in relation to the terminal ileum for a converting to an open procedure making a standard McBurney incision deepened to subcutaneous tissue, muscle splitting, we entered the peritoneal cavity. I used 0 Vicryl to hold the peritoneum. At this point, we were able to mobilize the cecum medially, we identified pretty much the incision to go right over the cecal area and as we elevated, I was able to elevate the tip of the appendix which pretty much just fell apart. Also of note, when we were trying to mobilize the cecum from the laparoscopic approach, as the appendix fell apart there was a bleeder that we were able to control it; this fascia with 3-0 silk suture which appeared to be in a retrocecal area towards the cecum. We were able then to maneuver ourselves to the base of the appendix. Again, the appendix was very friable and got to the base where we felt it was sufficient enough that we complied BASIL stapler used with a purple load. The area appeared satisfactory. Once we completed this, I was able to elevate the terminal ileum up towards the area and actually had some patchy necrosis of what appeared to be serosal tissue, fibrinous tissue, probably from the ruptured appendix, again said that terminal ileum itself was fine. The area was then checked for hemostasis and appeared satisfactory. I placed the patient in reverse Trendelenburg position, irrigated, placed Villa drains through a small stab wound above the right lower quadrant incision and positioned drain down the cul-de-sac attached some to the skin edge with 2-0 silk suture. We closed the wound by using a 3-0 chromic for the peritoneum and interrupted 0 Vicryl for muscle splitting and external oblique subcutaneous tissue irrigated and stefano for these. We also used 0 Vicryl suture x2 for the umbilical port site, the other ones were stefano. Dressing was applied. The procedure was tolerated well by the patient. Estimated blood loss approximately 20 mL The patient was taken to recovery in good condition. I attest to the content of the Intraoperative Record and any orders documented therein. Any exception s are noted below.
[2017-06-15] MEDS: AMLODIPINE BESYLATE 5 MG TAB PO SCH (10:00)
[2017-06-15] MEDS: HYDROCHLOROTHIAZIDE 25 MG TAB PO SCH (10:01)
[2017-06-15] MEDS: LOSARTAN POTASSIUM 50 MG TAB PO SCH (10:02)
[2017-06-15] MEDS: HEPARIN SOD 5000 UNIT/0.5 ML CARP SQ SCH ×2 (10:06→21:09)
[2017-06-15] MEDS: PIPERACILL/TAZOBAC IV 3.375 GM in NSS 100ML IV SCH ×2 (10:21→18:17)
[2017-06-15] MEDS: ONDANSETRON INJ 2 MG/ML 2 ML VIAL IV PRN (16:17)
[2017-06-15] MEDS ORDERED: NURSING VERBAL MED ORDER ONE (17:30)
[2017-06-15] MEDS ORDERED: DiphenhydrAMINE HCL 50 MG/ML VIAL IV PRN (17:45)
[2017-06-15] MEDS: LATANOPROST 0.005% OP SOLN 2.5 ML BTL OPB SCH (21:06)
[2017-06-16] VITALS (7 sets, daily range): BP systolic 136–183; BP diastolic 83–96; PULSE 75–96; TEMP 36.6–37.1; O2SAT 88–93
[2017-06-16] MEDS: LACTATED RINGER'S 1000ML 1,000 ML IV SCH (00:20)
[2017-06-16] MEDS: OXYCODONE/ACETAMINOPHEN 5-325 TAB PO PRN ×4 (00:20→20:35)
[2017-06-16] MEDS: PIPERACILL/TAZOBAC IV 3.375 GM in NSS 100ML IV SCH ×3 (00:20→20:29)
[2017-06-16 05:20] LABS: BASO % 0.1 %; BASO ABS # 0.01 K/uL (0-0.2); EOS % 0.1 %; EOS ABS # 0.02 K/uL (0-0.5); HEMATOCRIT 37.1 % (37-47); HEMOGLOBIN 13.2 g/dL (12.0-16.0); IG# 0.04 K/uL (0.00-0.02); LYMPH % 11.7 %; LYMPH ABS # 1.93 K/uL (1.2-3.4); MEAN CELL VOLUME 96.1 fL (80-100); MEAN CORPUSCULAR HEMOGLOBIN 34.2 pg (25-34); MEAN CORPUSCULAR HGB CONC 35.6 g/dl (32-36); MEAN PLATELET VOLUME 8.5 fL (7.4-10.4); MONO % 6.5 %; MONO ABS # 1.07 K/uL (0.11-0.59); NEUT % 81.4 %; NEUT ABS # 13.49 K/uL (1.4-6.5); PLATELET COUNT 242 K/uL (130-400); RED CELL DISTRIBUTION WIDTH CV 12.8 % (11.5-14.5); RED CELL DISTRIBUTION WIDTH SD 44.4 fL (36.4-46.3); WHITE BLOOD COUNT 16.56 K/uL (4.8-10.8)
[2017-06-16 05:50] LABS: CALCIUM 9.6 mg/dl (8.5-10.1); CREATININE 0.58 mg/dl (0.60-1.20)
[2017-06-16] MEDS: NSS + 20MEQ KCL 1000ML 1,000 ML IV SCH ×3 (05:57→20:29)
--- NOTE | 2017-06-16 06:40 | Surgery Progress Note ---
Surgery Progress Note Date of Service Jun 16, 2017. Subjective Post OP Day: 1 + complaints (Has some shaking and she feels the clear liquids have been too salty.), + ambulating, + pain controlled, + diet (Tolerating clears, drinking lot of water. Hasnt had much of the clear diet due to salt content.), No bowel movement, No flatus, No nausea, No vomiting Objective Vital Signs: Date Time Temp Pulse Resp B/P (MAP) Pulse Ox O2 Delivery O2 Flow Rate FiO2 06/16/17 02:51 92 Nasal Cannula 2.0 06/16/17 02:51 36.8 96 14 159/90 (113) 88 Room Air 06/16/17 00:12 Room Air 06/15/17 23:05 36.7 87 14 162/86 (111) 96 Room Air 06/15/17 16:00 96 Room Air 06/15/17 15:13 36.5 87 18 152/81 (104) 96 Room Air 06/15/17 11:18 37.1 90 16 147/76 (99) 93 Room Air 06/15/17 10:44 Room Air 06/15/17 07:30 36.5 108 18 124/76 (92) 90 Room Air Physical Exam: KIM drainage (45 ml output yesterday, serosang) General Appearance: WD/WN, no apparent distress Head: normocephalic, atraumatic Respiratory/Chest: no respiratory distress, no accessory muscle use Abdomen: no organomegaly, no pulsatile mass, + distended (moderate), + tenderness (Incisional) Incision(s): clean, dry, intact, no erythema, no drainage Laboratory Results: Results Past 24 Hours Test 06/15/17 06:58 06/16/17 04:43 Range/Units White Blood Count 19.43 16.56 4.8-10.8 K/uL Red Blood Count 4.28 3.86 4.2-5.4 M/uL Hemoglobin 14.5 13.2 12.0-16.0 g/dL Hematocrit 41.0 37.1 37-47 % Mean Corpuscular Volume 95.8 96.1 80-100 fL Mean Corpuscular Hemoglobin 33.9 34.2 25-34 pg Mean Corpuscular Hemoglobin Concent 35.4 35.6 32-36 g/dl Platelet Count 248 242 130-400 K/uL Mean Platelet Volume 8.3 8.5 7.4-10.4 fL Neutrophils (%) (Auto) 91.9 81.4 % Lymphocytes (%) (Auto) 2.8 11.7 % Monocytes (%) (Auto) 4.8 6.5 % Eosinophils (%) (Auto) 0.0 0.1 % Basophils (%) (Auto) 0.1 0.1 % Neutrophils # (Auto) 17.88 13.49 1.4-6.5 K/uL Lymphocytes # (Auto) 0.54 1.93 1.2-3.4 K/uL Monocytes # (Auto) 0.93 1.07 0.11-0.59 K/uL Eosinophils # (Auto) 0.00 0.02 0-0.5 K/uL Basophils # (Auto) 0.01 0.01 0-0.2 K/uL RDW Standard Deviation 44.3 44.4 36.4-46.3 fL RDW Coefficient of Variation 12.8 12.8 11.5-14.5 % Immature Granulocyte % (Auto) 0.4 0.2 % Immature Granulocyte # (Auto) 0.07 0.04 0.00-0.02 K/uL Sodium Level 127 136-145 mmol/L Potassium Level 3.0 3.5-5.1 mmol/L Chloride Level 93 98-107 mmol/L Carbon Dioxide Level 28 21-32 mmol/L Anion Gap 6.0 3-11 mmol/L Blood Urea Nitrogen 12 7-18 mg/dl Creatinine 0.58 0.60-1.20 mg/dl Est Creatinine Clear Calc Drug Dose 79.4 ml/min Estimated GFR () 112.1 Estimated GFR (Non- 96.7 BUN/Creatinine Ratio 20.2 10-20 Random Glucose 111 70-99 mg/dl Calcium Level 9.6 8.5-10.1 mg/dl Assessment & Plan POD #1 s/p laparoscopic converted to open appendectomy Patient seen and examined with Dr. Jean - labs reviewed. Pain controlled, abdomen still distended, incisional tenderness. Tolerating clears, No N/V. Urinating okay. WBC 16.56 today - improving, continue IV Zosyn. Advance to Full liquids, low sodium - see how she tolerates. Keep KIM, Continue to ambulate. Will continue to monitor. Please contact with questions or concerns.
--- NOTE | 2017-06-16 07:37 | Clinical Documentation Query ---
GRACY MaradiagaATORE : CLINICAL DOCUMENTATION QUERIES QUERY 1 OF 2 Patient is a 66 year old female who underwent open appendectomy for acute ruptured gangrenous retrocecal appendix. As appropriate, consider documentation as suggested below in order to capture the severity of illness and associated risk of mortality associated with this condition. In your clinical opinion is this patient being managed for: (x ) ruptured gangrenous appendicitis with localized peritonitis ( ) Not Agree ( ) Other explanation of clinical findings (Please Explain) ( ) Unable to determine (Please Define) ( ) Need to Discuss The medical record reflects the following clinical findings, treatment, and risk factors. Clinical Indicators: Abdominal pain, leukocytosis, tachycardia, anorexia, nausea, fever, chills, dry heaves Treatment: Surgery, IVF, chemistries, antibiotics Risk Factors: Ruptured gangrenous appendix QUERY 2 OF 2 Serum sodium on admission of 129 mmol/L. This a.m. (06/16), repeat values are 127 mmol/L. She is being treated with NSS + 20 meq KCl/L at 125 ml/hr. In your clinical opinion is this patient being managed for: ( ) Hyponatremia ( ) Not Agree ( ) Other explanation of clinical findings (Please Explain) ( ) Unable to determine (Please Define) ( ) Need to Discuss The medical record reflects the following clinical findings, treatment, and risk factors. Clinical Indicators: As above Treatment: IV NSS, serial chemistries Risk Factors: Age, medications, poor intake. Please clarify and document your clinical opinion in the progress notes and discharge summary. Terms such as "probable", "suspected", "likely", "questionable", "possible", or "still to be ruled out" are acceptable. IF IN AGREEMENT, YOU MUST DOCUMENT ABOVE DIAGNOSTIC STATEMENT IN DAILY PROGRESS NOTES AND DISCHARGE SUMMARY. This document is not part of the patient's record. Thank You, Jose Mccarthy, YO [phone]
[2017-06-16] MEDS: AMLODIPINE BESYLATE 5 MG TAB PO SCH (07:46)
[2017-06-16] MEDS: LOSARTAN POTASSIUM 50 MG TAB PO SCH (07:47)
[2017-06-16] MEDS: HYDROCHLOROTHIAZIDE 25 MG TAB PO SCH (07:47)
[2017-06-16] MEDS ORDERED: BISACODYL 5 MG TABEC PO ONE (08:00)
[2017-06-16] MEDS: HEPARIN SOD 5000 UNIT/0.5 ML CARP SQ SCH ×2 (09:20→21:16)
[2017-06-16] MEDS ORDERED: NURSING VERBAL MED ORDER ONE (09:30)
[2017-06-16] MEDS ORDERED: POTASSIUM CHLORIDE 20 MEQ TABCR PO STA (09:47)
[2017-06-16] MEDS ORDERED: HydrALAZINE HCL 20 MG/ML VIAL IV. PRN (10:00)
[2017-06-16] MEDS ORDERED: AMLODIPINE BESYLATE 5 MG TAB PO ONE (10:00)
[2017-06-16] MEDS: MAGNESIUM SULFATE 1GM / D5W 1 GM in PREMIXED IN D5W 100 ML IV SCH ×2 (10:28→11:42)
--- NOTE | 2017-06-16 11:13 | Medical Consult ---
Consultation Date of Consultation: Jun 16, 2017. Attending Physician: Anton Jean M.D. Reason for Consultation: Postop medical management History of Present Illness 66-year-old female who is postop day [address] Jean. Patient reports persistent nausea since surgery. She reports her pain is mostly controlled however minimal coughing and movement flares her pain. She denies flatus and bowel movement. She denies chest pain and shortness of breath. No lightheadedness or dizziness. She has been voiding without difficulty. Past Medical/Surgical History Medical Problems: (1) Hip fracture Permanent Comment: S/P repair Status: Chronic (2) Hypertension Status: Chronic (3) Osteoporosis Status: Chronic (4) Rheumatoid arthritis Status: Chronic (5) Ulnar nerve compression Permanent Comment: S/P repair Status: Chronic Surgical Problems: (1) History of carpal tunnel surgery Status: Chronic Family History FH: heart failure FATHER MOTHER Social History Smoking Status: Former Smoker (Quit 1 week ago) Alcohol Use: occasionally Allergies Coded Allergies: No Known Allergies (Unverified , 05/03/17) Home Medications Cozaar (Losartan Potassium) 100 Mg Tab 100 Mg PO DAILY Hctz (Hydrochlorothiazide) 12.5 Mg Cap 12.5 Mg PO DAILY Norvasc (Amlodipine Besylate) 5 Mg Tab 5 Mg PO DAILY Current Inpatient Medications Current Inpatient Medications Medications (Trade) Dose Ordered Sig/Don Route Start Time Stop Time Status Last Admin Dose Admin Ioversol (Optiray 320) 100 ml UD PRN IV 06/14/17 22:45 06/18/17 22:44 Acetaminophen 100 ml @ 400 mls/hr Q8H PRN IV 06/15/17 03:45 07/15/17 03:44 Oxycodone/ Acetaminophen (Percocet 5-325mg Tab) 1 tab Q4H PRN PO 06/15/17 03:45 06/29/17 03:44 Morphine Sulfate (MoRPHine SULFATE INJ) 2 mg Q3H PRN IV 06/15/17 03:45 06/29/17 03:44 Oxycodone/ Acetaminophen (Percocet 5-325mg Tab) 2 tab Q4H PRN PO 06/15/17 03:45 06/29/17 03:44 06/16/17 08:01 2 TAB Morphine Sulfate (MoRPHine SULFATE INJ) 4 mg Q3H PRN IV 06/15/17 03:45 06/29/17 03:44 06/15/17 05:11 4 MG Ondansetron HCl (Zofran Inj) 4 mg Q6H PRN IV 06/15/17 03:45 07/15/17 03:44 06/15/17 16:17 4 MG Miscellaneous Information (Consult) 1 ea UD PRN N/A 06/15/17 03:45 07/15/17 03:44 Heparin Sodium (Porcine) (Heparin Sq 5000 Unit/0.5ml) 5,000 unit Q12 SQ 06/15/17 09:00 07/15/17 08:59 06/16/17 09:20 5,000 UNIT Losartan Potassium (coZAAR TAB) 100 mg DAILY PO 06/15/17 09:00 07/15/17 08:59 06/16/17 07:47 100 MG Diphenhydramine HCl (Benadryl Inj) 25 mg ONE PRN IV 06/15/17 17:45 Latanoprost (Xalatan Oph Soln) 1 drops HS OPB 06/15/17 21:00 07/15/17 20:59 06/15/17 21:06 1 DROPS Potassium Chloride/Sodium Chloride 1,000 ml @ 125 mls/hr Q8H IV 06/16/17 04:30 07/16/17 04:29 06/16/17 05:57 125 MLS/HR Timolol Maleate (Timoptic 0.5% Oph Soln) 1 drops QAM OPB 06/17/17 09:00 07/17/17 08:59 Hydralazine HCl (HydrALAZINE INJ) 10 mg Q6H PRN IV. 06/16/17 10:00 07/16/17 09:59 Amlodipine Besylate (Norvasc Tab) 10 mg QAM PO 06/17/17 09:00 07/17/17 08:59 Magnesium Sulfate 1 gm/Prmx 100 ml @ 100 mls/hr Q1H IV 06/16/17 10:30 06/16/17 12:29 06/16/17 10:28 100 MLS/HR Review of Systems ROS per HPI, all other systems reviewed and negative Physical Exam Date Time Temp Pulse Resp B/P (MAP) Pulse Ox O2 Delivery O2 Flow Rate FiO2 06/16/17 08:00 Room Air 06/16/17 07:45 36.6 90 20 183/93 (123) 93 Room Air 06/16/17 02:51 92 Nasal Cannula 2.0 06/16/17 02:51 36.8 96 14 159/90 (113) 88 Room Air 06/16/17 00:12 Room Air 06/15/17 23:05 36.7 87 14 162/86 (111) 96 Room Air 06/15/17 16:00 96 Room Air 06/15/17 15:13 36.5 87 18 152/81 (104) 96 Room Air 06/15/17 11:18 37.1 90 16 147/76 (99) 93 Room Air General Appearance: WD/WN, no apparent distress Head: normocephalic, atraumatic Eyes: normal inspection, EOMI, sclerae normal ENT: hearing grossly normal, + pertinent finding (Mucous membranes moist) Neck: supple, no JVD, trachea midline Respiratory/Chest: no respiratory distress, + decreased breath sounds Cardiovascular: regular rate, rhythm, no edema, normal peripheral pulses Abdomen/GI: soft, + tenderness (Incisional), + abnormal bowel sounds ( Hypoactive), + distended, + pertinent finding (Surgical dressings dry and intact , drain in place draining serous sanguinous drainage) Extremities/Musculoskelatal: normal inspection, no calf tenderness, normal capillary refill Neurologic/Psych: no motor/sensory deficits, alert, normal mood/affect, oriented x 3 Skin: normal color, warm/dry Laboratory Results Last 24 Hours Test 06/16/17 04:43 White Blood Count 16.56 K/uL Red Blood Count 3.86 M/uL Hemoglobin 13.2 g/dL Hematocrit 37.1 % Mean Corpuscular Volume 96.1 fL Mean Corpuscular Hemoglobin 34.2 pg Mean Corpuscular Hemoglobin Concent 35.6 g/dl Platelet Count 242 K/uL Mean Platelet Volume 8.5 fL Neutrophils (%) (Auto) 81.4 % Lymphocytes (%) (Auto) 11.7 % Monocytes (%) (Auto) 6.5 % Eosinophils (%) (Auto) 0.1 % Basophils (%) (Auto) 0.1 % Neutrophils # (Auto) 13.49 K/uL Lymphocytes # (Auto) 1.93 K/uL Monocytes # (Auto) 1.07 K/uL Eosinophils # (Auto) 0.02 K/uL Basophils # (Auto) 0.01 K/uL RDW Standard Deviation 44.4 fL RDW Coefficient of Variation 12.8 % Immature Granulocyte % (Auto) 0.2 % Immature Granulocyte # (Auto) 0.04 K/uL Sodium Level 127 mmol/L Potassium Level 3.0 mmol/L Chloride Level 93 mmol/L Carbon Dioxide Level 28 mmol/L Anion Gap 6.0 mmol/L Blood Urea Nitrogen 12 mg/dl Creatinine 0.58 mg/dl Est Creatinine Clear Calc Drug Dose 79.4 ml/min Estimated GFR () 112.1 Estimated GFR (Non- 96.7 BUN/Creatinine Ratio 20.2 Random Glucose 111 mg/dl Calcium Level 9.6 mg/dl Magnesium Level 1.7 mg/dl Assessment & Plan APPENDICITIS, S/P LAPAROSCOPIC CONVERTED TO OPEN APPENDECTOMY -Postop day #1 -On Zosyn -Diet and management as per general surgery HYPONATREMIA -Likely due to poor p.o. intake in combination with hydrochlorothiazide use -IVF changed to normal saline with 20meq K+ this morning by surgery (was on LR) -Will hold hydrochlorothiazide, follow-up sodium level later this evening to monitor rate of correction HYPOKALEMIA, HYPOMAGNESEMIA -Replace follow potassium and magnesium levels HYPERTENSION -BP is intermittently elevated, likely due to pain/nausea/anxiety -Holding hydrochlorothiazide as above, will increase amlodipine to 10 mg daily, give 5 mg now -Continue home dose of losartan -As needed hydralazine DVT PROPHYLAXIS -Teds and SCDs as per surgery Thank you for this consultation. We will follow the patient with you during their hospital stay. You can reach a member of the [facility] Hospitalist Team 23/09 via pager @ .
[2017-06-16] MEDS: ALPRAZOLAM 0.25 MG TAB PO PRN (16:06)
[2017-06-16 19:34] LABS: CALCIUM 9.8 mg/dl (8.5-10.1); CREATININE 0.56 mg/dl (0.60-1.20); POTASSIUM 3.4 mmol/L (3.5-5.1)
[2017-06-16] MEDS: LATANOPROST 0.005% OP SOLN 2.5 ML BTL OPB SCH (20:34)
[2017-06-16] MEDS ORDERED: POTASSIUM CHLORIDE 20 MEQ TABCR PO ONE (20:45)
[2017-06-17] VITALS (7 sets, daily range): BP systolic 148–178; BP diastolic 83–94; PULSE 82–98; TEMP 37–37.2; O2SAT 89–93
[2017-06-17] MEDS: PIPERACILL/TAZOBAC IV 3.375 GM in NSS 100ML IV SCH ×3 (04:08→20:28)
[2017-06-17] MEDS: NSS + 20MEQ KCL 1000ML 1,000 ML IV SCH ×2 (04:08→13:52)
[2017-06-17] MEDS: OXYCODONE/ACETAMINOPHEN 5-325 TAB PO PRN ×3 (04:14→16:05)
--- NOTE | 2017-06-17 07:51 | SURGERY PROGRESS NOTE ---
DATE: 06/17/2017 Karen is 48 hours postoperative laparoscopic then converted to open for a ruptured gangrenous appendix. She overall feels better, although oral intake is poor, she feels nauseated, she has not had any flatus yet. Last vitals showed a temperature of 37.1, pulse 91, respirations 16, blood pressure 138/83, O2 sats 90 on 2 liters. I and O, she diuresed about 5 liters yesterday and 1600 overnight, Villa drainage is serous, slightly sanguineous and nonpurulent. The abdomen is a bit softer. At this point, we will increase her activity. I suspect it will be another 24 hours or so before she had any bowel function and I would go slow with oral intake.
[2017-06-17 07:53] LABS: HEMATOCRIT 38.2 % (37-47); HEMOGLOBIN 13.6 g/dL (12.0-16.0); MEAN CELL VOLUME 96.5 fL (80-100); MEAN CORPUSCULAR HEMOGLOBIN 34.3 pg (25-34); MEAN CORPUSCULAR HGB CONC 35.6 g/dl (32-36); MEAN PLATELET VOLUME 8.7 fL (7.4-10.4); PLATELET COUNT 256 K/uL (130-400); RED CELL DISTRIBUTION WIDTH CV 12.6 % (11.5-14.5); RED CELL DISTRIBUTION WIDTH SD 44.6 fL (36.4-46.3); WHITE BLOOD COUNT 11.68 K/uL (4.8-10.8)
[2017-06-17] MEDS: ONDANSETRON INJ 2 MG/ML 2 ML VIAL IV PRN (08:19)
[2017-06-17] MEDS: TIMOLOL MALEATE 0.5% OP SOLN 5 ML BTL OPB SCH (08:22)
[2017-06-17] MEDS: AMLODIPINE BESYLATE 5 MG TAB PO SCH (08:23)
[2017-06-17] MEDS: LOSARTAN POTASSIUM 50 MG TAB PO SCH (08:24)
[2017-06-17] MEDS: HEPARIN SOD 5000 UNIT/0.5 ML CARP SQ SCH ×2 (08:29→20:27)
[2017-06-17 08:31] LABS: CALCIUM 9.6 mg/dl (8.5-10.1); CREATININE 0.42 mg/dl (0.60-1.20); POTASSIUM 3.6 mmol/L (3.5-5.1)
[2017-06-17] MEDS: ALPRAZOLAM 0.25 MG TAB PO PRN (11:54)
--- NOTE | 2017-06-17 17:49 | Progress Note ---
Internal Med Progress Note Date of Service: Jun 17, 2017. Provider Documentation: SUBJECTIVE: Has minimum abdominal pain, tolerating clears well Unable to pass gas Has been ambulating in hallway multiple times independently No fever chills OBJECTIVE: Vital Signs-as noted below Exam: General-very pleasant no sign of distress Eyes-sclera nonicteric ENT-moist oral mucosa Neck-no JVD, no carotid bruit no thyromegaly Lungs-clear to auscultate no wheeze or rales Heart-regular S S1-S2 Abdomen-soft Surgical dressing/KIM drain present with serosanguineous drainage Hypoactive bowel sounds Extremities-no focal neurological deficit, alert awake oriented 3 Neuro-[] Lab data as noted below. ASSESSMENT & PLAN: ACUTE APPENDICITIS WITH RUPTURE-PERFORATED VISCUS, S/P LAPAROSCOPIC CONVERTED TO OPEN APPENDECTOMY Presented with abdominal pain Found to have ruptured gangrenous appendix -Postop day #2 -On Zosyn, leukocytosis continues to improve Negative blood culture -Recovering well postop Continue management as per surgery HYPONATREMIA -Likely due to poor p.o. intake in combination with hydrochlorothiazide use -Improved Follow electrolytes HYPOKALEMIA, HYPOMAGNESEMIA Possible secondary to recent abdominal surgery -Replaced follow potassium and magnesium levels HYPERTENSION -BP stable -Holding hydrochlorothiazide for hyponatremia increased amlodipine to 10 mg daily, give 5 mg now -Continue home dose of losartan -As needed hydralazine DVT PROPHYLAXIS -Teds and SCDs as per surgery DISPOSITION Per primary team Expected to be discharged home when medically stable Vital Signs: Date Time Temp Pulse Resp B/P (MAP) Pulse Ox O2 Delivery O2 Flow Rate FiO2 06/17/17 23:25 Nasal Cannula 2.0 06/17/17 23:22 37.2 93 14 148/83 (104) 89 Room Air 06/17/17 23:22 92 Nasal Cannula 2.0 06/17/17 15:30 Room Air 06/17/17 15:27 37.0 89 18 162/86 (111) 93 Room Air 06/17/17 11:48 160/87 (111) 06/17/17 10:29 82 178/93 (121) 06/17/17 08:35 37.2 98 12 170/94 (119) 92 Room Air 06/17/17 08:00 92 Room Air Lab Results: Results Past 24 Hours Test 06/17/17 07:31 Range/Units White Blood Count 11.68 4.8-10.8 K/uL Red Blood Count 3.96 4.2-5.4 M/uL Hemoglobin 13.6 12.0-16.0 g/dL Hematocrit 38.2 37-47 % Mean Corpuscular Volume 96.5 80-100 fL Mean Corpuscular Hemoglobin 34.3 25-34 pg Mean Corpuscular Hemoglobin Concent 35.6 32-36 g/dl RDW Standard Deviation 44.6 36.4-46.3 fL RDW Coefficient of Variation 12.6 11.5-14.5 % Platelet Count 256 130-400 K/uL Mean Platelet Volume 8.7 7.4-10.4 fL Sodium Level 130 136-145 mmol/L Potassium Level 3.6 3.5-5.1 mmol/L Chloride Level 98 98-107 mmol/L Carbon Dioxide Level 25 21-32 mmol/L Anion Gap 7.0 3-11 mmol/L Blood Urea Nitrogen 5 7-18 mg/dl Creatinine 0.42 0.60-1.20 mg/dl Est Creatinine Clear Calc Drug Dose 109.6 ml/min Estimated GFR () 124.7 Estimated GFR (Non- 107.6 BUN/Creatinine Ratio 10.7 10-20 Random Glucose 104 70-99 mg/dl Calcium Level 9.6 8.5-10.1 mg/dl Magnesium Level 1.7 1.8-2.4 mg/dl
[2017-06-17] MEDS ORDERED: MAGNESIUM SULFATE 1GM / D5W 1 GM in PREMIXED IN D5W 100 ML IV ONE (18:00)
[2017-06-17] MEDS: LATANOPROST 0.005% OP SOLN 2.5 ML BTL OPB SCH (20:28)
[2017-06-18] MEDS: NSS + 20MEQ KCL 1000ML 1,000 ML IV SCH ×2 (02:26→17:51)
[2017-06-18] MEDS: PIPERACILL/TAZOBAC IV 3.375 GM in NSS 100ML IV SCH ×3 (04:57→20:31)
[2017-06-18 07:41] VITALS: BP 166/88; PULSE 108; TEMP 37.5; O2SAT 92
[2017-06-18] MEDS: TIMOLOL MALEATE 0.5% OP SOLN 5 ML BTL OPB SCH (07:55)
[2017-06-18] MEDS: LOSARTAN POTASSIUM 50 MG TAB PO SCH (07:56)
[2017-06-18] MEDS: AMLODIPINE BESYLATE 5 MG TAB PO SCH (07:56)
[2017-06-18 07:59] LABS: HEMOGLOBIN 13.4 g/dL (12.0-16.0); MEAN CORPUSCULAR HEMOGLOBIN 33.8 pg (25-34); MEAN CORPUSCULAR HGB CONC 35.3 g/dl (32-36); MEAN PLATELET VOLUME 8.2 fL (7.4-10.4); PLATELET COUNT 260 K/uL (130-400); RED CELL DISTRIBUTION WIDTH CV 12.6 % (11.5-14.5); WHITE BLOOD COUNT 10.18 K/uL (4.8-10.8)
[2017-06-18] MEDS: HEPARIN SOD 5000 UNIT/0.5 ML CARP SQ SCH ×2 (08:00→20:42)
--- NOTE | 2017-06-18 08:17 | Surgery Progress Note ---
Surgery Progress Note Date of Service Jun 18, 2017. Subjective Post OP Day: 3 + feeling well, + ambulating, + pain controlled, No bowel movement, No flatus, No nausea, No vomiting Patient reports that she is feeling better today- denies nausea, vomiting. Ambulating. Objective Vital Signs: Date Time Temp Pulse Resp B/P (MAP) Pulse Ox O2 Delivery O2 Flow Rate FiO2 06/17/17 23:25 Nasal Cannula 2.0 06/17/17 23:22 37.2 93 14 148/83 (104) 89 Room Air 06/17/17 23:22 92 Nasal Cannula 2.0 06/17/17 15:30 Room Air 06/17/17 15:27 37.0 89 18 162/86 (111) 93 Room Air 06/17/17 11:48 160/87 (111) 06/17/17 10:29 82 178/93 (121) 06/17/17 08:35 37.2 98 12 170/94 (119) 92 Room Air Physical Exam: KIM drainage (minimal- non-purulent, light serosang) General Appearance: WD/WN, no apparent distress Head: normocephalic, atraumatic Incision(s): clean, dry, intact, no erythema, no drainage Laboratory Results: Results Past 24 Hours Test 06/18/17 07:39 Range/Units White Blood Count 10.18 4.8-10.8 K/uL Red Blood Count 3.96 4.2-5.4 M/uL Hemoglobin 13.4 12.0-16.0 g/dL Hematocrit 38.0 37-47 % Mean Corpuscular Volume 96.0 80-100 fL Mean Corpuscular Hemoglobin 33.8 25-34 pg Mean Corpuscular Hemoglobin Concent 35.3 32-36 g/dl RDW Standard Deviation 44.0 36.4-46.3 fL RDW Coefficient of Variation 12.6 11.5-14.5 % Platelet Count 260 130-400 K/uL Mean Platelet Volume 8.2 7.4-10.4 fL Assessment & Plan 3 days s/p laparoscopic then converted to open for a ruptured gangrenous appendix Patient seen and examined with Dr. Jean. She is doing well- AM labs reviewed, some still pending. Tolerating full liquid diet, denies nausea- will advance diet and see how she tolerates. Possible D/C tomorrow- possibly with drain.
[2017-06-18 08:26] LABS: CALCIUM 9.4 mg/dl (8.5-10.1); CREATININE 0.43 mg/dl (0.60-1.20); POTASSIUM 3.2 mmol/L (3.5-5.1)
[2017-06-18 08:59] VITALS: BP 149/88
[2017-06-18 10:02] VITALS: PULSE 98
[2017-06-18] MEDS ORDERED: POTASSIUM CHLORIDE 10 MEQ TABCR PO STA (10:08)
[2017-06-18] MEDS: OXYCODONE/ACETAMINOPHEN 5-325 TAB PO PRN ×2 (11:04→20:35)
[2017-06-18 15:17] VITALS: BP 157/83; PULSE 92; TEMP 37; O2SAT 98
--- NOTE | 2017-06-18 17:52 | Progress Note ---
Internal Med Progress Note Date of Service: Jun 18, 2017. Provider Documentation: SUBJECTIVE: Feels much better diet advance to solid tolerating well no nausea vomiting Has minimum abdominal pain No bowel movement yet OBJECTIVE: Vital Signs-as noted below Exam: General-very pleasant no sign of distress Eyes-sclera nonicteric ENT-moist oral mucosa Neck-no JVD, no carotid bruit no thyromegaly Lungs-clear to auscultate no wheeze or rales Heart-regular S1-S2 Abdomen-soft/ Surgical dressing/KIM drain present with serosanguineous drainage Hypoactive bowel sounds Extremities-no focal neurological deficit, alert awake oriented 3 Neuro-no focal neurological deficit , AAO x3 Lab data as noted below. ASSESSMENT & PLAN: ACUTE APPENDICITIS WITH RUPTURE-PERFORATED VISCUS, S/P LAPAROSCOPIC CONVERTED TO OPEN APPENDECTOMY Presented with abdominal pain Found to have ruptured gangrenous appendix -Postop day #3 -On Zosyn, leukocytosis resolved, normal white count today Negative blood culture -Recovering well postop Continue management as per surgery HYPONATREMIA -Likely due to poor p.o. intake in combination with hydrochlorothiazide use -Improved with IV fluids DC IV fluids as patient is started on solid food Follow electrolytes HYPOKALEMIA, HYPOMAGNESEMIA Possible secondary to recent abdominal surgery -Replaced follow potassium and magnesium levels HYPERTENSION -BP stable -Holding hydrochlorothiazide for hyponatremia increased amlodipine to 10 mg daily, give 5 mg now -Continue home dose of losartan -As needed hydralazine DVT PROPHYLAXIS -Teds and SCDs as per surgery DISPOSITION Per primary team Expected to be discharged home tomorrow if remains medically stable Vital Signs: Date Time Temp Pulse Resp B/P (MAP) Pulse Ox O2 Delivery O2 Flow Rate FiO2 06/19/17 08:08 36.8 91 15 145/90 (108) 96 Room Air 06/19/17 00:00 Room Air 06/18/17 23:09 36.6 86 14 145/90 (108) 93 Room Air 06/18/17 15:17 37.0 92 18 157/83 (107) 98 Room Air 06/18/17 15:15 Room Air 06/18/17 10:02 98 Lab Results: Results Past 24 Hours Test 06/19/17 08:49 Range/Units White Blood Count 8.43 4.8-10.8 K/uL Red Blood Count 4.12 4.2-5.4 M/uL Hemoglobin 13.8 12.0-16.0 g/dL Hematocrit 39.7 37-47 % Mean Corpuscular Volume 96.4 80-100 fL Mean Corpuscular Hemoglobin 33.5 25-34 pg Mean Corpuscular Hemoglobin Concent 34.8 32-36 g/dl RDW Standard Deviation 44.4 36.4-46.3 fL RDW Coefficient of Variation 12.7 11.5-14.5 % Platelet Count 286 130-400 K/uL Mean Platelet Volume 8.4 7.4-10.4 fL Sodium Level 129 136-145 mmol/L Potassium Level 3.1 3.5-5.1 mmol/L Chloride Level 97 98-107 mmol/L Carbon Dioxide Level 29 21-32 mmol/L Anion Gap 3.0 3-11 mmol/L Blood Urea Nitrogen 5 7-18 mg/dl Creatinine 0.56 0.60-1.20 mg/dl Est Creatinine Clear Calc Drug Dose 82.2 ml/min Estimated GFR () 113.4 Estimated GFR (Non- 97.8 BUN/Creatinine Ratio 8.9 10-20 Random Glucose 127 70-99 mg/dl Calcium Level 10.0 8.5-10.1 mg/dl Magnesium Level 1.9 1.8-2.4 mg/dl
[2017-06-18] MEDS: LATANOPROST 0.005% OP SOLN 2.5 ML BTL OPB SCH (20:31)
[2017-06-18 23:09] VITALS: BP 145/90; PULSE 86; TEMP 36.6; O2SAT 93
[2017-06-19] MEDS: PIPERACILL/TAZOBAC IV 3.375 GM in NSS 100ML IV SCH ×2 (04:13→12:37)
[2017-06-19 07:45] VITALS: O2SAT 96
[2017-06-19 08:08] VITALS: BP 145/90; PULSE 91; TEMP 36.8; O2SAT 96
[2017-06-19] MEDS: LOSARTAN POTASSIUM 50 MG TAB PO SCH (08:27)
[2017-06-19] MEDS: TIMOLOL MALEATE 0.5% OP SOLN 5 ML BTL OPB SCH (08:27)
[2017-06-19] MEDS: AMLODIPINE BESYLATE 5 MG TAB PO SCH (08:28)
[2017-06-19] MEDS: HEPARIN SOD 5000 UNIT/0.5 ML CARP SQ SCH (08:46)
[2017-06-19] MEDS ORDERED: POTASSIUM CHLORIDE 10 MEQ TABCR PO SCH (09:00)
[2017-06-19 09:08] LABS: HEMATOCRIT 39.7 % (37-47); HEMOGLOBIN 13.8 g/dL (12.0-16.0); MEAN CELL VOLUME 96.4 fL (80-100); MEAN CORPUSCULAR HEMOGLOBIN 33.5 pg (25-34); MEAN CORPUSCULAR HGB CONC 34.8 g/dl (32-36); MEAN PLATELET VOLUME 8.4 fL (7.4-10.4); PLATELET COUNT 286 K/uL (130-400); RED CELL DISTRIBUTION WIDTH CV 12.7 % (11.5-14.5); RED CELL DISTRIBUTION WIDTH SD 44.4 fL (36.4-46.3); WHITE BLOOD COUNT 8.43 K/uL (4.8-10.8)
[2017-06-19 09:42] LABS: CREATININE 0.56 mg/dl (0.60-1.20); POTASSIUM 3.1 mmol/L (3.5-5.1)
[2017-06-19] MEDS ORDERED: POTASSIUM CHLORIDE 10 MEQ TABCR PO STA (09:56)
[2017-06-19] MEDS ORDERED: AMOX875T PO (10:47)
[2017-06-19] MEDS ORDERED: OXYC-57 PO (10:47)
[2017-06-19] MEDS ORDERED: POTA-639 PO (10:52)
[2017-06-19 11:36] VITALS: BP 152/82; PULSE 80; TEMP 36.9; O2SAT 95
--- NOTE | 2017-06-19 11:46 | Discharge Instructions ---
Discharge Instructions Date of Service Jun 19, 2017. Admission Reason for Admission: Acute Perforated Appendicitis Discharge Discharge Diagnosis / Problem: Acute Perforated Appendicitis Discharge Goals Goal(s): Decrease discomfort, Improve function Activity Recommendations Activity Limitations: as noted below Lifting Limitations: no more than 10 pounds Exercise/Sports Limitations: until after follow-up appointment May Resume Sexual Activity: after follow-up appointment Shower/Bathe: tomorrow Driving or Machine Use: resume 1 day after discharge . Instructions / Follow-Up Instructions / Follow-Up Please follow-up with Dr. Jean in the General Surgery Clinic located at [address] [place] [address] [place] next week. Please call the office at to make this appointment. Please call the office with any questions or concerns. Current Hospital Diet Patient's current hospital diet: Low Sodium Diet (2gm Na), Regular Diet Discharge Diet Recommended Diet: Regular Diet Procedures Procedures Performed: lap converted to open appendectomy Pending Studies Studies pending at discharge: no Medical Emergencies . Who to Call and When: Medical Emergencies: If at any time you feel your situation is an emergency, please call 911 immediately. . Non-Emergent Contact Non-Emergency issues call your: Primary Care Provider, Surgeon Call Non-Emergent contact if: temperature is above 101.5, your pain is not controlled, wound has increased drainage, wound has increased redness . "Provider Documentation" section prepared by Roshni Lang. .
[2017-06-19 13:15] VITALS: BP 152/82; PULSE 80; TEMP 36.9; O2SAT 95
--- NOTE | 2017-06-19 14:55 | Surgery Progress Note ---
Surgery Progress Note Date of Service Jun 19, 2017. Subjective + feeling well, + ambulating, + flatus, + pain controlled, No nausea, No vomiting Doing well, no concerns or complaints. Tolerating diet. Objective Vital Signs: Date Time Temp Pulse Resp B/P (MAP) Pulse Ox O2 Delivery O2 Flow Rate FiO2 06/19/17 13:15 36.9 80 15 95 Nasal Cannula 06/19/17 11:36 36.9 80 15 152/82 (105) 95 Room Air 06/19/17 08:08 36.8 91 15 145/90 (108) 96 Room Air 06/19/17 07:45 96 Room Air 06/19/17 00:00 Room Air 06/18/17 23:09 36.6 86 14 145/90 (108) 93 Room Air 06/18/17 15:17 37.0 92 18 157/83 (107) 98 Room Air 06/18/17 15:15 Room Air Physical Exam: KIM drainage General Appearance: WD/WN, no apparent distress Head: normocephalic, atraumatic Abdomen: non tender, non distended, soft, + pertinent finding (stefano in place , incisions healing well, no signs of infection, no drainage. ) Incision(s): clean, dry, intact, no erythema, no drainage Laboratory Results: Results Past 24 Hours Test 06/19/17 08:49 Range/Units White Blood Count 8.43 4.8-10.8 K/uL Red Blood Count 4.12 4.2-5.4 M/uL Hemoglobin 13.8 12.0-16.0 g/dL Hematocrit 39.7 37-47 % Mean Corpuscular Volume 96.4 80-100 fL Mean Corpuscular Hemoglobin 33.5 25-34 pg Mean Corpuscular Hemoglobin Concent 34.8 32-36 g/dl RDW Standard Deviation 44.4 36.4-46.3 fL RDW Coefficient of Variation 12.7 11.5-14.5 % Platelet Count 286 130-400 K/uL Mean Platelet Volume 8.4 7.4-10.4 fL Sodium Level 129 136-145 mmol/L Potassium Level 3.1 3.5-5.1 mmol/L Chloride Level 97 98-107 mmol/L Carbon Dioxide Level 29 21-32 mmol/L Anion Gap 3.0 3-11 mmol/L Blood Urea Nitrogen 5 7-18 mg/dl Creatinine 0.56 0.60-1.20 mg/dl Est Creatinine Clear Calc Drug Dose 82.2 ml/min Estimated GFR () 113.4 Estimated GFR (Non- 97.8 BUN/Creatinine Ratio 8.9 10-20 Random Glucose 127 70-99 mg/dl Calcium Level 10.0 8.5-10.1 mg/dl Magnesium Level 1.9 1.8-2.4 mg/dl Assessment & Plan Ms. Gaona is doing well, no new concerns or complaints Tolerating diet, passing flatus, no BM yet. Pain controlled. KIM drain removed, patient tolerated removal. No complications. Patient ok for discharge today- son is coming after 3:30PM Patient to follow-up in the general surgery clinic next week for staple removal. Return precautions discussed with patient. 3 days s/p laparoscopic then converted to open for a ruptured gangrenous appendix Patient seen and examined with Dr. Jean. She is doing well- AM labs reviewed, some still pending. Tolerating full liquid diet, denies nausea- will advance diet and see how she tolerates. Possible D/C tomorrow- possibly with drain.
[2017-06-19 15:30] VITALS: BP 157/89; PULSE 90; TEMP 36.9; O2SAT 97
--- NOTE | 2017-06-23 19:05 | Discharge Summary ---
Discharge Summary Date of Service Jun 23, 2017. Admission Date/Reason Jun 15, 2017 at 03:43 Acute Perforated Appendicitis. Discharge Date/Disposition Jun 19, 2017 Home Diagnosis Principal Diagnosis: Acute perforated Appendicitis Procedure(s) Performed Laparoscopic converted to open appendectomy Medication Reconciliation Augmentin 875mg 1 Tab PO BID x 5 days. Disp: 10 Tablets. Percocet 1-2 Tablets PO Q4H PRN for pain x 3 days. Disp: 20 Tablets. Klor-con 20Meq Tablets 20 Meq BID x 10 Tablets. Admission Physical Exam As per Admitting History & Physical. Hospital Course 06/15/17: Patient presented to the ED late 06/14/17 due to abdominal pain beginning earlier in the night. She had nausea and dry heaves as well. Reports her pain was generalized at first but eventually localized into her RLQ. She had associated chills as well. WBC 14.52. CT shows findings significant for acute appendicitis. She had significant TTP over RLQ. it was decided at this time to take her to the OR for laparoscopic appendectomy, possible open with Dr. Miranda garnica. Pre-op antibiotics given. Consents signed. The appendix was found to be ruptured (gangrenous) retrocecal during the case and it was necessary to switch to an open procedure. The procedure was performed laparoscopic converted to open successfully. A 19 Villa drain was placed in the right cul de sac. The patient was then sent to the ICU for post-op recovery and then admitted to med/surg for post-op care. 06/16/17: Pain controlled, abdomen still distended, incisional tenderness. Tolerating clears although she feels they are too salty. No N/V. Urinating okay. WBC 16.56 , improving. Continue IV Zosyn, Advance to full liquids, keep KIM, Continue to ambulate. 06/17/17: Feeling better, has some nausea. No flatus or BM yet. KIM drainage is serosang and nonpurulent. Abdomen is less distended today. Increase activity. Continue full liquids for now. Continue current management. 06/18/17: Pain controlled, Ambulating, Tolerating full liquids, No N/V today. Still no flatus or BM. Advance to regular diet and see how she tolerates. Keep KIM for now. Possible D/C tomorrow +/- with drain. 06/19/17: Doing well, pain controlled, no new concerns or complaints. Tolerating regular diet, No N/V. +flatus, still no BM. KIM drain removed. Patient was discharged this afternoon and picked up by her son. Patient was sent home with a prescription for Percocet to take as needed for pain relief, Augmentin for residual infection and Klor-con for electrolyte replacement. Patient was given instructions on limitations and wound care. Patient to follow-up in the general surgery clinic in [address] Jean for staple removal. Return precautions given to patient. Discharge Instructions Please refer to the electronic Patient Visit Report (Discharge Instructions) for additional information.
== END 2017-06-19 16:50 | disposition home or self-care (01) | DRG 342 ==
LOC: C.EDB 18:50 → C.MSW 06-15 03:43 → ENRESERV 06-15 04:02
PROVIDERS: ADMIT Surgery; ATTEND Surgery
PROC: 0DTJ0ZZ Resection of Appendix, Open Approach (ICD-10-PCS; principal; 2017-06-15 01:15)
PROC: 0DJD4ZZ Inspection of Lower Intestinal Tract, Percutaneous Endoscopic Approach (ICD-10-PCS; principal; 2017-06-15 01:15)
DX: K35.80 Unspecified acute appendicitis (principal); E87.1 Hypo-osmolality and hyponatremia; R11.0 Nausea; I10 Essential (primary) hypertension; E87.6 Hypokalemia; E83.42 Hypomagnesemia; Z79.899 Other long term (current) drug therapy; Z87.891 Personal history of nicotine dependence

== ENCOUNTER → 2017-07-04 | Outpatient (CLI) | payer OTHER ==
[~2017-07-04] MED LIST changes: +AMLO-110 PO; -B-CO-25 PO; -CALCTAB30 PO; -CHOL1000 PO; -ETAN50IN2 INJ; -HYDR-5688 PO; +LOSA100T65 PO; -OMEG10007 PO; +OXYC-57 PO; +POTA-639 PO; -POTA99TA PO; -PRED-301 PO; -PRED20TA PO
[2017-07-04 17:54] LABS: ALBUMIN 3.9 gm/dl (3.4-5.0); ALT/SGPT 25 U/L (12-78); AST/SGOT 19 U/L (15-37); BLOOD UREA NITROGEN 10 mg/dl (7-18); CALCIUM 10.4 mg/dl (8.5-10.1); CARBON DIOXIDE 29 mmol/L (21-32); GLUCOSE 100 mg/dl (70-99); POTASSIUM 3.5 mmol/L (3.5-5.1); SODIUM 133 mmol/L (136-145)
[2017-07-04 18:04] LABS: ALKALINE PHOSPHATASE 67 U/L (45-117); TOTAL PROTEIN 8.1 gm/dl (6.4-8.2)
== END | disposition home or self-care (01) ==
LOC: C.LAB1850 16:59
PROVIDERS: ATTEND Internal Medicine
DX: E87.1 Hypo-osmolality and hyponatremia (principal); E87.6 Hypokalemia; R53.83 Other fatigue

== ENCOUNTER → 2017-09-18 | Outpatient (CLI) | payer OTHER ==
[~2017-09-18] MED LIST changes: -AMLO-110 PO; +AMLO5TAB3 PO
--- NOTE | 2017-09-18 09:03 | DIAGNOSTIC IMAGING REPORT ---
[facility]UB CLINICAL HISTORY: 66 years-old Female presenting with R31.9 Blood in [id number]. TECHNIQUE: Single supine view of the abdomen was obtained. COMPARISON: CT from 06/14/2017. FINDINGS: Nonobstructive bowel gas pattern. No gross pneumoperitoneum. Surgical clips project over the right lower quadrant. Allowing for bowel gas and stool, no calcifications to suggest nephrolithiasis. 2 lag screw fixation of the right femoral neck. Mild degenerative changes of the lower lumbar spine. Lungs may be hyperinflated. IMPRESSION: 1. Allowing for bowel gas and stool, no radiographic evidence of renal calculi. Electronically signed by: Dinesh Ivy M.D. 09/18/2017 9:02 AM Dictated Date/Time: 09/18/2017 8:55 AM
== END | disposition home or self-care (01) ==
LOC: C.LAB1850 07:40
PROVIDERS: ATTEND Internal Medicine
DX: R31.9 Hematuria, unspecified (principal)